=== PATIENT | female | born 1940 | race Caucasian/White ===

== ENCOUNTER 2016-03-08 15:39 | Inpatient (IN) | payer OTHER, MEDICARE ==
[~2016-03-08] VITALS: Ht 167.6 cm; Wt 81.6 kg
[~2016-03-08 15:39] MED LIST: ASPIRIN EC325 M2 PO
--- NOTE | 2016-03-08 15:46 | NUR ---
PT HAD A COLD FOR THE PAST 4 DAYS AND SON STATES SHE HAS BEEN ACTING VERY STRANGE AND NOT MAKING AND SENCE.
--- NOTE | 2016-03-08 16:05 | ED INFLUENZA/URI COMPLAINT ---
History of Present Illness General Chief Complaint: Upper Respiratory Sx/Fever Stated Complaint: ?URI 4 DAYS NOT FELLING WELL Source: patient, family Exam Limitations: confusion Vital Signs & Intake/Output Vital Signs & Intake/Output Vital Signs Date Time Temp Pulse Resp B/P Pulse O2 O2 Flow FiO2 Ox Delivery Rate 03/12 0901 95 Nasal 2.0L Cannula 03/12 0849 98.5 92 20 130/70 03/12 0848 98.5 92 20 130/70 03/12 0817 98.5 92 20 130/70 94 Nasal 2.0L Cannula 03/12 0800 96 Nasal 2.0L Cannula 03/12 0000 97.4 100 22 132/70 92 Room Air 03/12 0000 92 Room Air 03/11 2146 100 132/70 03/11 2017 97 Nasal 2.0L Cannula 03/11 1600 96 03/11 1600 98.6 84 20 130/76 92 Room Air 03/11 1012 98.4 80 20 138/80 03/11 1011 98.4 80 20 138/80 ED Intake and Output 03/12 0000 03/11 1200 Intake Total 1200 100 Output Total 650 500 Balance 550 -400 Intake, IV 0 Intake, Oral 1200 100 Number 0 Bowel Movements Output, Urine 650 500 Allergies Coded Allergies: No Known Allergies (07/14/15) Reconcile Medications Albuterol Sulfate 2.5 MG/3 ML (0.083 %) VIAL.NEB 3 ML INH BID SHORT OF BREATH Alendronate Sodium 70 MG TABLET 1 TAB PO QW BONE HEALTH (Reported) in the morning, at least 30 minutes before the first food, beverage, or medication of the day Amoxicillin/Clavulanate Potass (Amox-Clav 875-125 MG Tablet) 875 MG-125 MG TABLET 1 TAB PO BID PNEUMONIA Aspirin (Ecotrin*) 325 MG TABLET.DR 1 TAB PO DAILY HEART (Reported) Atorvastatin Calcium 20 MG TABLET 1 TAB PO QHS HEART HEALTH (Reported) Benzonatate 100 MG CAPSULE 1 TAB PO TID PRN COUGH Cinacalcet HCl (Sensipar) 30 MG TABLET 1 TAB PO DAILY CALCIUM REPLACEMENT ( Reported) Clopidogrel Bisulfate (Clopidogrel) 75 MG TABLET 1 TAB PO DAILY HEART HEALTH (Reported) Dapagliflozin Propanediol (Farxiga) 5 MG TABLET 1 TAB PO DAILY DM (Reported) Ergocalciferol (Vitamin D2) (Vitamin D2) 50,000 UNIT CAPSULE 1 CAP PO QW VITAMIN (Reported) Furosemide 20 MG TABLET 1 TAB PO DAILY HEART HEALTH (Reported) Glimepiride 4 MG TABLET 1 TAB PO DAILY DM (Reported) Metoprolol Tartrate 25 MG TABLET 1 TAB PO BID HEART HEALTH (Reported) Paroxetine HCl 40 MG TABLET 1 TAB PO DAILY DEPRESSION (Reported) Potassium Chloride 20 MEQ TAB.ER.PRT 1 TAB PO DAILY HEART HEALTH (Reported) Ramipril 2.5 MG CAPSULE 1 CAP PO DAILY HEART HEALTH (Reported) Sitagliptin Phos/Metformin HCl (Janumet 50-500 MG Tablet) 50 MG-500 MG TABLET 1 TAB PO BID DM (Reported) Triage Note: PT HAD A COLD FOR THE PAST 4 DAYS AND SON STATES SHE HAS BEEN ACTING VERY STRANGE AND NOT MAKING AND SENCE. Triage Nurses Notes Reviewed? yes Onset: Gradual Duration: day(s): (3) Timing: recent history Severity: severe No Modifying Factors: none Associated Symptoms: cough, AMS, LETHARGY, FLUCTUATING BLOOD SUGARS HPI: This is a 76-year-old female with history of coronary disease, and diabetes presents to the ER with family from home for chief complaint of not acting herself today. According to the son and [id number] she has been having a cold with cough for the past 2-3 days. Some weakness and malaise. They state that she has had some episodes of altered mental status. No sick contacts. She has not been out since Lisa. Patient lives alone but they live 2 blocks away and they see her multiple times a day. He states that he checked her blood sugar at home and it was fluctuating between 103 100 home. No vomiting that was known. Patient arrives with some altered mental status, mild to moderate distress, hypoxic on the monitor at 89% on room air. She is a nonsmoker, nondrinker. Past History Travel History Traveled to [place] past 21 day No Medical History Any Pertinent Medical History? see below for history Neurological: NONE EENT: NONE Cardiovascular: CAD, hypertension Respiratory: NONE Gastrointestinal: NONE Hepatic: NONE Renal: NONE Musculoskeletal: osteoporosis Psychiatric: NONE Endocrine: diabetes Blood Disorders: NONE Cancer(s): NONE Surgical History Surgical History: stents Psychosocial History What is your primary language [place] Tobacco Use: Never used ETOH Use: denies use Illicit Drug Use: denies illicit drug use Family History Hx Contributory? No Review of Systems Review of Systems Constitutional: Reports: chills, fever, malaise, weakness. EENTM: Reports: no symptoms. Respiratory: Reports: cough, short of breath. Cardiovascular: Reports: chest pain. GI: Reports: no symptoms. Genitourinary: Reports: no symptoms. Musculoskeletal: Reports: no symptoms. Skin: Reports: no symptoms. Neurological/Psychological: Reports: confusion. Hematologic/Endocrine: Denies: bruising, bleeding. Immunologic/Allergic: Reports: no symptoms. All Other Systems: Reviewed and Negative Physical Exam Physical Exam General Appearance: well developed/nourished, alert, awake, moderate distress, CONFUSED Head: atraumatic, normal appearance Eyes: Bilateral: normal appearance, PERRL, EOMI. Ears, Nose, Throat: normal ENT inspection, moist mucous membrane, hearing grossly normal Neck: normal inspection, supple, full range of motion Respiratory: decreased breath sounds, rhonchi Cardiovascular: regular rate/rhythm Peripheral Pulses: 2+ radial (R), 2+ radial (L) Gastrointestinal: normal bowel sounds, soft, non-tender Rectal: BROWN STOOL, GUIAC POSITIVE Extremities: normal inspection, normal capillary refill, normal range of motion, no edema Neurologic/Psych: no motor/sensory deficits, awake, alert, oriented x 3 Skin: intact, normal color, warm/dry Core Measures Severe Sepsis Present: Yes Septic Shock Present: No ED Sepsis Exam Date of Focused Sepsis Exam: 03/08/16 Time of Focused Sepsis Exam: 1711 Sepsis Cardiac Exam: Regular Rate/Rhythm Sepsis Resp Exam: Ronchi Sepsis Cap Refill Exam: <2 Sec Sepsis Peripheral Pulse Exam: Normal Sepsis Peripheral Pulse Location: Radial Sepsis Skin Color Exam: Normal for Ethnicity Skin Temp/Moisture Exam: Warm/Dry Progress Differential Diagnosis: pneumonia, INFLUENZA, BACTEREMIA Plan of Care: Orders Procedure Date/time Status CBC WITHOUT DIFFERENTIAL 03/12 06 Complete Therapeutic Exercise 03/11 UNK Complete Gait Training 03/11 UNK Complete Laboratory Tests 03/12/16 0635: CBC w Diff NO MAN DIFF REQ, RBC 4.51, MCV 83.6, MCH 27.5, RDW 13.3, MPV 9.0, Gran % 66.2, Lymphocytes % 21.1, Monocytes % 10.3 H, Eosinophils % 1.9, Basophils % 0.5, Absolute Granulocytes 6.9 H, Absolute Lymphocytes 2.2, Absolute Monocytes 1.1 H, Absolute Eosinophils 0.2, Absolute Basophils 0.1, PUBS MCHC 32.9 L Diagnostic Imaging: Viewed by Me: Radiology Read, CT Scan. Discussed w/RAD: Radiology Read, CT Scan. Radiology Impression: PATIENT: CHRISTOPHER GONZALEZ PRESENT AGE: 76 PATIENT ACCOUNT NO: [id number] : 38 LOCATION: [facility] ORDERING PHYSICIAN: FRED ROMERO MD SERVICE DATE: 03/08/16 EXAM TYPE: CAT - CT HEAD WO IV CONTRAST EXAMINATION: CT HEAD WITHOUT CONTRAST CLINICAL INFORMATION: 76-year-old female with acute mental status change. Patient requires anticoagulation. Currently has right upper lobe pneumonia. COMPARISON: None. TECHNIQUE: Contiguous axial imaging was performed from the skull base to vertex without intravenous administration of contrast. Motion degrades some of the exam. DLP: 744 mGy-cm. FINDINGS: There is no evidence of acute intracranial hemorrhage or territorial infarction. No abnormal mass effect or midline shift is seen. Patel to white matter differentiation is well preserved. No extra-axial fluid collections are identified. The ventricles are normal in size reflecting mild atrophy of aging. 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 The osseous structures and soft tissues are normal. Mastoid air cells are symmetrically aerated. There is fluid contained within the sphenoid sinus air cells. IMPRESSION: No acute intracranial pathology. No intracranial hemorrhage. Sphenoid sinusitis. DICTATED BY: SELENA MABRY MD DATE/TIME DICTATED:03/08/161840 TESTER/LIFT TRUCKER:KRISTOPHER DATE /TIME TRANSCRIBED:03/08/161840 CONFIDENTIAL, DO NOT COPY WITHOUT APPROPRIATE AUTHORIZATION. <Electronically signed in Other Vendor System> SIGNED BY: SELENA MABRY MD 03/08/16 185 CXR Impression: PATIENT: CHRISTOPHER GONZALEZ PRESENT AGE : 76 PATIENT ACCOUNT NO: [id number] : 38 LOCATION: ER ORDERING PHYSICIAN: FRED ROMERO MD SERVICE DATE: 03/08/161613 EXAM TYPE: RAD - XRY -CHEST XRAY, PA AND LATERAL EXAMINATION: XR CHEST CLINICAL INFORMATION: Cough, fever and altered mental status. COMPARISON: 07/14/2015 TECHNIQUE: PA and lateral views of the chest were obtained. FINDINGS: Patient has a large body habitus. There is a new finding of consolidation within the right upper lung. No pleural effusion. Cardiac silhouette is borderline enlarged. There is atherosclerotic calcification of the aortic arch. Bones are diffusely osteoporotic. 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 The acromiohumeral distance narrowing at the left shoulder suggests presence of chronic rotator cuff tear. IMPRESSION: There is likely bacterial pneumonia of the right upper lobe without pleural effusion. Recommend chest radiographic follow-up in 4-6 weeks after medical therapy to ensure improvement/resolution of the disease. DICTATED BY: BITA PARKER MD DATE/TIME DICTATED:03/08/161636 TESTER/LIFT TRUCKER:KRISTOPHER DATE/TIME TRANSCRIBED:03/08/161636 CONFIDENTIAL, DO NOT COPY WITHOUT APPROPRIATE AUTHORIZATION. <Electronically signed in Other Vendor System> SIGNED BY: BITA PARKER MD 03/08/16 1644 Initial ED EKG: LBBB Departure Departure Time of Disposition: 1911 Disposition: STILL A PATIENT Condition: Stable Clinical Impression Primary Impression: Pneumonia Secondary Impressions: Altered mental status, Hypoxia, LBBB (left bundle branch block) Referrals: GINGER WOO MD (PCP/Family) Departure Forms: Customer Survey General Discharge Information Prescriptions: Current Visit Scripts Albuterol Sulfate 3 ML INH BID #1 Benzonatate 1 TAB PO TID PRN COUGH #30 Amoxicillin/Clavulanate Potass (Amox-Clav 875-125 MG Tablet) 1 TAB PO BID #4 TAB Admission Note Spoke With: MILLER AVILES MD Documentation of Exam: Documentation of any treatments & extenuating circumstances including Concerns Regarding Discharge (functional status, medication knowledge or non-compliance, living conditions, etc.) that warrant an admission rather than observation: [IV ABX, ANTIPYRETICS, NASAL OXYGEN, F/U BLOOD AND SPUTUM CULTURES,, TELE MONITOR, IV HEPARIN, SERIAL EKG/TROPONIN, ECHOCARDIOGRAM, CARDIOLOGY CONSULTATION ] Critical Care Note Critical Care Note Critical Care Time: 30-74 min
--- NOTE | 2016-03-08 16:15 | NUR ---
PT TO ROOM 5 NOTED FAMILY ATTEMPTING TO TRANSFER PT AND ASSISTED PT TO SHASHA ROMERO AT BEDSIDE TO EVAL PT
--- NOTE | 2016-03-08 16:27 | NUR ---
PT LEFT FOR RADIOLOGY
--- NOTE | 2016-03-08 16:44 | RADIOLOGY REPORT ---
EXAMINATION: XR CHEST CLINICAL INFORMATION: Cough, fever and altered mental status. COMPARISON: 07/14/2015 TECHNIQUE: PA and lateral views of the chest were obtained. FINDINGS: Patient has a large body habitus. There is a new finding of consolidation within the right upper lung. No pleural effusion. Cardiac silhouette is borderline enlarged. There is atherosclerotic calcification of the aortic arch. Bones are diffusely osteoporotic. 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 The acromiohumeral distance narrowing at the left shoulder suggests presence of chronic rotator cuff tear. IMPRESSION: There is likely bacterial pneumonia of the right upper lobe without pleural effusion. Recommend chest radiographic follow-up in 4-6 weeks after medical therapy to ensure improvement/resolution of the disease.
[2016-03-08 16:59] LABS: ABSOLUTE BASOPHIL COUNT 0 /CUMM (0.0-0.2); ABSOLUTE EOSINOPHIL COUNT 0 /CUMM (0.0-0.7); ABSOLUTE GRANULOCYTE CT 13.8 /CUMM (1.4-6.5); ABSOLUTE LYMPH COUNT 1.5 /CUMM (1.2-3.4); BASOPHIL % 0.2 % (0.0-2.0); EOSINOPHIL % 0 % (0-5); GRANULOCYTE % 84.4 % (42.2-75.2); HEMATOCRIT 45.7 % (37-47); MEAN CORPUSCULAR HGB 27.2 PG (27.0-31.0); MEAN CORPUSCULAR HGB CONC 32.4 G/DL (33.0-37.0); MEAN CORPUSCULAR VOLUME 84.1 FL (81.0-99.0); MEAN PLATELET VOLUME 8.8 FL (7.4-10.4); PLATELET COUNT 276 /CUMM (130-400); RBC DISTRIBUTION WIDTH 13.3 % (11.5-14.5); RED BLOOD CELL CT 5.43 /CUMM (4.20-5.40); WHITE BLOOD CELL COUNT 16.3 /CUMM (4.8-10.8)
--- NOTE | 2016-03-08 17:02 | NUR ---
LABS AND OTHER TEST SENT PT ATTEMPTED TO VOID WITH NO SUCCESS
--- NOTE | 2016-03-08 17:44 | NUR ---
ATTEMPTED THREE TIMES TO OBTAINE A S/C URINE AND NOT ABLE TO. PT ALSO NOW DIAPHORETIC FROM TYLENOL AND DECREASE IN FEVER. MD TO BE NOTIFIED OF FINDING
--- NOTE | 2016-03-08 17:45 | NUR ---
CRITICAL TEST RESULTS [id number] CHRISTOPHER GONZALEZ 76 F TESTS AND RESULTS: TROP .11 Results received and read back by: BERTO SOLIS Results received date and time: 03/08/16 1827 The following provider was notified of the results, and read the results back: Deanna ROMERO MD Notified date and time: 03/08/16 at 174
--- NOTE | 2016-03-08 17:53 | NUR ---
PT COMPLETED IV ROCEPHINE
--- NOTE | 2016-03-08 18:24 | NUR ---
PT LEFT FOR CAT SCAN AND MEDICATED ORDRED AND HAS IV ZITHRO INFUSING
--- NOTE | 2016-03-08 18:53 | CT SCAN REPORT ---
EXAMINATION: CT HEAD WITHOUT CONTRAST CLINICAL INFORMATION: 76-year-old female with acute mental status change. Patient requires anticoagulation. Currently has right upper lobe pneumonia. COMPARISON: None. TECHNIQUE: Contiguous axial imaging was performed from the skull base to vertex without intravenous administration of contrast. Motion degrades some of the exam. DLP: 744 mGy-cm. FINDINGS: There is no evidence of acute intracranial hemorrhage or territorial infarction. No abnormal mass effect or midline shift is seen. Patel to white matter differentiation is well preserved. No extra-axial fluid collections are identified. The ventricles are normal in size reflecting mild atrophy of aging. 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 The osseous structures and soft tissues are normal. Mastoid air cells are symmetrically aerated. There is fluid contained within the sphenoid sinus air cells. IMPRESSION: No acute intracranial pathology. No intracranial hemorrhage. Sphenoid sinusitis.
--- NOTE | 2016-03-08 19:00 | NUR ---
HOUSE STAFF AT BEDSIDE TO EVAL PT PT WAS GUAIC POSTIVE WITH BROWN STOOL AND NO MASSIMO BLD PER MD ROMERO
--- NOTE | 2016-03-08 19:23 | History & Physical ---
LILY NGO 03/08/161921: General Information and HPI MD Statement: I have seen and personally examined CHRISTOPHER GONZALEZ and documented this H&P. The patient is a 76 year old F who presented with a patient stated chief complaint of [productive cough, change in mentation]. Source of Information: patient, family Exam Limitations: no limitations History of Present Illness: Mrs Gonzalez is a 76 y/o [place] lady with a PMH of CAD is a slight recent placement and (), DM, HTN, lower extremity edema who presents with complaints of three-day duration productive cough and new onset change in mentation. Information obtained from patient's son: Symptoms started on Sunday with a productive cough (yellow sputum) since, which stayed relatively stable over the next 2 days. This morning the patient was noted to have generalized body shakes accompanied with a change in her mentation most noticeably being disoriented and unable to perform simple tasks. No reports of recent travel, sick contacts. ROS: She denies any headache, slurred speech, sneezing, runny nose, sore throat, nausea, chest pain, palpitations, shortness of breath, new rashes, burning with urination lower extremity swelling. Patient's PCP is Dr. Woo (primary care of [place]). Patient's tie in machine operator is Dr. Alaniz in [place]. Allergies/Medications Allergies: Coded Allergies: No Known Allergies (07/14/15) Past History Travel History Traveled to [place] past 21 day No Medical History Neurological: NONE EENT: NONE Cardiovascular: CAD, hypertension Respiratory: NONE Gastrointestinal: NONE Hepatic: NONE Renal: NONE Musculoskeletal: osteoporosis Psychiatric: NONE Endocrine: diabetes Blood Disorders: NONE Cancer(s): NONE Surgical History Surgical History: stents Past Family/Social History Psychosocial History ETOH Use: denies use Illicit Drug Use: denies illicit drug use Review of Systems Review of Systems Constitutional: Reports: see HPI. EENTM: Reports: no symptoms. Cardiovascular: Reports: see HPI. Respiratory: Reports: see HPI. GI: Reports: no symptoms. Genitourinary: Reports: no symptoms. Musculoskeletal: Reports: no symptoms. Skin: Reports: no symptoms. Exam & Diagnostic Data Last 24 Hrs of Vital Signs/I&O Vital Signs Date Time Temp Pulse Resp B/P Pulse O2 O2 Flow FiO2 Ox Delivery Rate 03/08 2105 98.3 74 74 108/59 95 Nasal 2.0L Cannula 03/08 1846 97.8 86 18 122/61 95 03/08 1759 99.5 96 20 135/70 94 Nasal 2.0L Cannula 03/08 1547 99.7 98 16 139/77 90 Nasal Cannula Intake & Output 03/08 1600 03/08 0800 03/08 0000 Intake Total Output Total Balance Patient 180 lb Weight Physical Exam General Appearance Alert, Cooperative, No Acute Distress Skin No Rashes, No Breakdown HEENT PERRLA, EOMI, Mucous Membr. moist/pink Neck Supple Cardiovascular Regular Rate, Normal S1, Normal S2 Lungs Normal Air Movement, Inspiratory crackles in the basilar regions BL. Rhonchi present in the R lung shah Abdomen Normal Bowel Sounds, Soft, No Tenderness Neurological Normal Speech Extremities No Cyanosis, No Edema Vascular Pulses Symmetrical Last 24 Hrs of Labs/Pablito: Laboratory Tests 03/08/16 1808: Urine Color YEL, Urine Clarity CLEAR, Urine pH 6.0, Ur Specific [place] 1.015, Urine Protein 30 H, Urine Ketones NEG, Urine Nitrite NEG, Urine Bilirubin NEG, Urine Urobilinogen 0.2, Ur Leukocyte Esterase NEG, Ur Microscopic SEDIMENT EXAMINED, Urine RBC RARE, Urine Hemoglobin TRACE-INTACT, Urine Glucose >=1000 H 03/08/16 1640: Anion Gap 13, Estimated GFR > 60, BUN/Creatinine Ratio 28.0 H, Glucose 141 H, Lactic Acid 1.6, Calcium 9.2, Total Bilirubin 1.5 H, AST 35, ALT 43, Alkaline Phosphatase 122, Troponin I 0.11 *H, Total Protein 7.1, Albumin 3.8, Globulin 3.3, Albumin/Globulin Ratio 1.2, CBC w Diff MAN DIFF ORDERED, RBC 5.43 H, MCV 84.1, MCH 27.2, RDW 13.3, MPV 8.8, Gran % 84.4 H, Lymphocytes % 9.2 L, Monocytes % 6.2, Eosinophils % 0, Basophils % 0.2, Absolute Granulocytes 13.8 H , Segmented Neutrophils 70, Band Neutrophils 6 H, Absolute Lymphocytes 1.5, Lymphocytes 8 L, Monocytes 16 H, Absolute Monocytes 1.0 H, Absolute Eosinophils 0, Absolute Basophils 0, Platelet Estimate ADEQUATE, Normocytic RBCs VERIFIED, Normochromic RBCs VERIFIED, PUBS MCHC 32.4 L, Acetone Level NEGATIVE Microbiology 03/08 2103 URINE ROUT: Legionella Antigen - ORD 03/08 2103 URINE ROUT: Streptococcus pneumoniae Antigen (M - ORD 03/08 1808 URINE ROUT: Urine Culture - RECD 03/08 1710 LOWER RESP: Respiratory Culture - ORD 03/08 1710 LOWER RESP: Gram Stain - ORD 03/08 1655 BLOOD: Blood Culture - RECD 03/08 1640 BLOOD: Blood Culture - RECD Diagnostic Data EKG Results Sinus rhythm, left bundle branch block. HR 96. QTC 470 CXR Results There is likely bacterial pneumonia of the right upper lobe without pleural effusion. Recommend chest radiographic follow-up in 4-6 weeks after medical therapy to ensure improvement/resolution of the disease. Other Results Head CT: No acute intracranial pathology. No intracranial hemorrhage. Sphenoid sinusitis. Assessment/Plan Assessment: 76 y/o [place] lady with a PMH of CAD is a slight recent placement and (2010), DM, HTN, lower extremity edema who presents with complaints of three-day duration productive cough and new onset change in mentation. Information obtained from patient's son: Symptoms started on Sunday with a productive cough (yellow sputum) since, which stayed relatively stable over the next 2 days. This morning the patient was noted to have generalized body shakes accompanied with a change in her mentation most noticeably being disoriented and unable to perform simple tasks. No reports of recent travel, sick contacts. VS on admission: BP 139/77, HR 98, RR 16, SPO2 90% on RA corrected to 94% on 2 LNC, T 99.7 Pertinent labs: WBC 16.3, 6% bandemia, sodium 135, T bili 1.5 Lactic acid: 0.11 Lactic acid: 1.6 UA: Glucose >1000 Problem list: 1. Community-acquired pneumonia 2. Leukocytosis with bandemia 3. Elevated troponins: NSTEMI vs demand ischemia of infection 4. LBBB on EKG 5. History of CAD 6. Diabetes Plan: * Admit to telemetry for continuous cardiac monitoring * Serial EKG/troponin 0100 hours, 0600 hrs. Echocardiogram in the a.m. * Cardiology follow-up in the a.m. (Dr. Freedman) * Lipid panel in the a.m. and discuss with cardiology for starting atorvastatin the a.m. * Heparin drip was started in the ED without PTT. Stat PTT ordered, nursing staff made aware to follow-up with dosage accordingly * Follow-up magnesium and phosphorus level * Follow-up cultures: Blood, urine, Legionella, strep antigen. Ceftriaxone and azithromycin started for CAP * Rapid influenza negative * Diabetic diet. Accu-Cheks, low-dose sliding scale * Pt NPO at this time in the setting of elevated troponins, EKG changes while on heparin for potential cardiac intervention * AM TEAM: * Patient is currently on a heparin drip. Confirm with cardiology for the need to continue aspirin and Plavix at this time As Ranked By This Provider Problem List: 1. Pneumonia 2. LBBB (left bundle branch block) 3. NSTEMI (non-ST elevated myocardial infarction) Core Measures/Miscellaneous Acute Coronary Syndrome ACS Diagnosis: Yes ASA W/I 24hr of admit Yes Beta-Kanika W/I 24hrs Yes LDL assessed W/I 24 hrs Yes Currently on Statin Yes Cerebrovascular Accident CVA/TIA Diagnosis: No Congestive Heart Failure CHF Diagnosis: No Venous Thromboembolism VTE Risk Factors: Age > 40 VTE Prophylaxis Ordered Inpt: [facility] prophylaxis d/t: No contraindications No VTE Pharm Prophylaxis d/t: No contraindications VTE Diagnosis: No VTE Type: NONE VTE Confirmed by (Test): NONE Severe Sepsis Severe Sepsis Present: Yes Septic Shock Septic Shock Present: No Miscellaneous Documentation Attending Case Discussed With: MILLER AVILES MD Primary Care Physician: GINGER WOO MD Patient sees these Specialists Dr. Alaniz (antenna rigger in [place]) Level of Patient Care: Telemetry MILLER AVILES 03/09/16 0114: General Information and HPI Allergies/Medications Home Med list Alendronate Sodium 70 MG TABLET 1 TAB PO QW BONE HEALTH (Reported) in the morning, at least 30 minutes before the first food, beverage, or medication of the day Aspirin (Ecotrin*) 325 MG TABLET.DR 1 TAB PO DAILY HEART (Reported) Atorvastatin Calcium 20 MG TABLET 1 TAB PO QHS HEART HEALTH (Reported) Cinacalcet HCl (Sensipar) 30 MG TABLET 1 TAB PO DAILY CALCIUM REPLACEMENT ( Reported) Clopidogrel Bisulfate (Clopidogrel) 75 MG TABLET 1 TAB PO DAILY HEART HEALTH (Reported) Dapagliflozin Propanediol (Farxiga) 5 MG TABLET 1 TAB PO DAILY DM (Reported) Ergocalciferol (Vitamin D2) (Vitamin D2) 50,000 UNIT CAPSULE 1 CAP PO QW VITAMIN (Reported) Furosemide 20 MG TABLET 1 TAB PO DAILY HEART HEALTH (Reported) Glimepiride 4 MG TABLET 1 TAB PO DAILY DM (Reported) Metoprolol Tartrate 25 MG TABLET 1 TAB PO BID HEART HEALTH (Reported) Paroxetine HCl 40 MG TABLET 1 TAB PO DAILY DEPRESSION (Reported) Potassium Chloride 20 MEQ TAB.ER.PRT 1 TAB PO DAILY HEART HEALTH (Reported) Ramipril 2.5 MG CAPSULE 1 CAP PO DAILY HEART HEALTH (Reported) Sitagliptin Phos/Metformin HCl (Janumet 50-500 MG Tablet) 50 MG-500 MG TABLET 1 TAB PO BID DM (Reported) Attending MD Review Statement Attending Statement Attending MD Statement: examined this patient, discuss w/resident/PA/AIR VALUE TESTER, agreed w/resident/PA/AIR VALUE TESTER, discussed with family, reviewed EMR data (avail), reviewed images, amended to note Attending Assessment/Plan: CC: Cough, SOB, confusion PMH: DM (on insulin), CAD S/P stent 5 years back, HTN Patient's primary language is [place], she speaks and understands Panamanian. History is mainly obtained from son and [id number]. According to them patient had been having cough upper respiratory symptoms along with some shortness of breath since last 4 days. Son observed some chills but patient denied any chills and fever. Patient was more lethargic and last 4 days and very much confused today so she was brought to ER. Patient had some chest pain after the cough started, center of the chest, nonradiating, currently resolved. Patient feels much better. Vitals: T max is 99.7, HR, RR, BP in acceptable range. Patient was 89% on room air at presentation, saturating 96% on 2 L currently. On exam: A O 3, mucosa extremely dry, neck supple, no JVD, no lymphadenopathy. CVS: S1-S2, RRR. RS: Clear to auscultate bilaterally. Abdomen: Soft, NT, ND, BS present. No focal neurological deficit. No obvious dependent edema. No skin rashes or inflammation. Labs: Remarkable for WBC 16.3, bicarbonate 30, bilirubin 1.5, lactate 1.5. Troponin 0.11 CXR:There is likely bacterial pneumonia of the right upper lobe without pleural effusion. CT head: No acute intracranial pathology, splenoid sinusitis present EKG: LBBB (new compared to previous EKG in June 2015) A and P #1 community-acquired pneumonia: Patient presented with cough and hypoxia, significant leukocytosis, chest x-ray shows right-sided infiltrate, patient currently is afebrile, lactate 1.6. Patient received azithromycin and ceftriaxone in ER along with 500 mL normal saline. - blood culture, sputum culture, UA -Continue azithromycin and ceftriaxone, continue O2 by nasal cannula, continue Mucinex, incentive spirometry #2 ?NSTEMI: elevated troponin, with new LBBB as compared to EKG in June 2015. Patient had history of CAD, S/P stent done 5 years back. Patient has tie in machine operator in [place], follows with her every 6 months. Cardiology was consulted in ER who suggested heparin drip.Patient has positive guaiac, but no martha blood. Onset of LBBB is unclear. Given her hypoxia, sepsis demand ischemia cannot be denied. -Serial EKG, trend troponin, patient received aspirin in ER, continue atorvastatin continue aspirin in a.m., continue Plavix in a.m., give evening dose of metoprolol, continue heparin. Watch for any acute bleeding, check CBC in a.m. #3 DM: Hold Janumet, continue basal and sliding scale insulin. #4 metabolic encephalopathy: Patient is much alert after hydration, CT head negative. Probably secondary to infection and volume contraction. Continue gentle hydration. #5 HTN: Continue ACEI for a.m., hold Lasix #6 patient was found to have solid heterogeneous mass probably arising from thyroid, ultrasound obtain thereafter showed : dominant left lower pole nodule with suspicious features. Percutaneous needle biopsy was suggested at that time, patient's son says that they followed up with outpatient. I could not find any pathology for that result in the previous records. This is to be followed up outpatient. #7 OT PT evaluation, adequate pain control
--- NOTE | 2016-03-08 19:30 | NUR ---
PT HAS BED ASSIGNMENT 176-1. ROOM NOT CLEAN. RN NOTIFIED.
--- NOTE | 2016-03-08 21:48 | NUR ---
NURSE IS IN ISOLATION ROOM SO SHE WILL CALL ME BACK
[2016-03-08] MEDS ORDERED: JANUMET 50-5001 EACH PO (22:19)
[2016-03-08] MEDS ORDERED: FARXIGA5 M1 PO (22:19)
[2016-03-08] MEDS ORDERED: ATORVASTATIN CA20 M1 PO (22:20)
[2016-03-08] MEDS ORDERED: METOPROLOL TART25 M1 PO (22:20)
[2016-03-08] MEDS ORDERED: RAMIPRIL2.5 M1 PO (22:21)
[2016-03-08] MEDS ORDERED: SENSIPAR30 M1 PO (22:23)
[2016-03-08] MEDS ORDERED: PAROXETINE HCL40 M1 PO (22:24)
[2016-03-08] MEDS ORDERED: CLOPIDOGREL75 M1 PO (22:24)
[2016-03-08] MEDS ORDERED: ALENDRONATE SOD70 M2 PO (22:25)
[2016-03-08] MEDS ORDERED: FUROSEMIDE20 M1 PO (22:26)
[2016-03-08] MEDS ORDERED: VITAMIN D250000 UNIT PO (22:27)
[2016-03-08] MEDS ORDERED: GLIMEPIRIDE4 M1 PO (22:27)
[2016-03-08] MEDS ORDERED: POTASSIUM CHLO20 ME2 PO (22:27)
[2016-03-08 23:14] VITALS: BP 126/72
--- NOTE | 2016-03-08 23:29 | NUR ---
CHRISTOPHER GONZALEZ Nurse Note by: BERTO SOLIS I agree with the POWDERED SUGAR PULVERIZER OPERATOR findings/evaluation of this patient's condition. Entered by: BERTO SOLIS Date: 03/08/16 Time: 1560
--- NOTE | 2016-03-09 01:16 | Admission Certification ---
Admission Certification Certification Statement - As attending physician, I certify that at the time of - admission, based on clinical presentation, severity of - symptoms, need for further diagnostic testing and - therapeutic interventions, and risk of adverse outcomes - without in-hospital treatment, in my clinical assessment, - this patient requires an acute hospital stay for a minimum - of two nights or longer. I have also considered psychsocial - factors such as support system, advanced age, financial - issues, cognitive issues, and failed out-patient treatments, - past re-admission history, safety of patient, and lack of - compliance as applicable. Specific rationale supporting this admission is: Pneumonia, NSTEMI
[2016-03-09 03:09] LABS: PT 16.5 SEC (9.4-12.5); PTT 40 SEC (25-37)
--- NOTE | 2016-03-09 06:03 | NUR ---
AROUND 0600 PT HAD 7 BEAT RUN OF VTACH FOLLOWED BY A 3 BEAT RUN. MD IZQUIERDO NOTIFIED. PTS BP AT THIS TIME 130/62, HR 82, O2 92% ON 2L N.C. PT ASYMPTOMATIC NO REPORTS OF CHEST PAIN OR SHORTNESS OF BREATH. WILL CONTINUE TO CLOSELY MONITOR.
--- NOTE | 2016-03-09 07:20 | PN- Housestaff ---
MARLA DORSEY 03/09/16 0720: Subjective Follow-up For: Community acquired pneumonia Elevated troponins-NSTEMI versus demand ischemia NEW Left bundle branch block Complaints: pain scale (0-10) Tele-Events Since Last Visit: Sinus rhythm Rate 72-86 3 beat run V. tach in the morning Subjective: Patient was seen and examined this morning. she is alert, awake and oriented to time place and person. No acute events monitored overnight Patient reports ongoing cough, sputum production-yellow color, shortness of breath, she feels weak and lethargic this morning. However denies any chest pain, racing of heart, headache, dizziness or lightheadedness. Denies any nausea, vomiting, abdominal pain, in bladder or bowel habits, fever or chills. Vitals were normal. Afebrile, heart rate 97, respiratory rate 20, blood pressure 118/64, saturating at 96% on 2 L. Review of Systems Constitutional: Denies: chills. Objective Last 24 Hrs of Vital Signs/I&O Vital Signs Date Time Temp Pulse Resp B/P Pulse O2 O2 Flow FiO2 Ox Delivery Rate 03/09 1628 98.7 97 20 118/64 96 Nasal 2.0L Cannula 03/09 1322 96 Nasal 2.0L Cannula 03/09 1253 Nasal 2.0L Cannula 03/09 1002 84 132/60 03/09 1001 84 132/60 03/09 0834 99.5 84 20 132/60 95 Nasal 2.0L Cannula 03/09 0800 93 Nasal 2.0L Cannula 03/09 0016 85 120/72 03/08 2314 98.1 85 20 126/72 96 Nasal 2.0L Cannula 03/08 2300 95 Nasal 2.0L Cannula 03/08 2106 98.3 74 74 108/59 95 Nasal 2.0L Cannula Intake & Output 03/09 1600 03/09 0800 03/09 0000 Intake Total 320 200 Output Total 150 200 Balance 170 0 Intake, Oral 320 200 Output, Urine 150 200 Patient 81.647 kg Weight Physical Exam General Appearance: Alert, Oriented X3, Cooperative, No Acute Distress Skin: No Rashes, No Breakdown HEENT: Atraumatic, Mucous Membr. moist/pink Neck: Supple, No JVD Lymphatic: Cervical nl Cardiovascular: Normal S1, Normal S2 Lungs: Normal Air Movement, b/l wheezes Abdomen: Normal Bowel Sounds, Soft, No Tenderness Extremities: No Clubbing, No Cyanosis, No Edema Vascular: Normal Pulses Current Medications: Current Medications Sig/Dima Start time Last Medication Dose Route Stop Time Status Admin Acetaminophen 650 MG Q6P PRN 03/08 2100 AC PO Albuterol Sulfate 3 ML BID 03/09 1250 AC 03/09 INH 1240 Aspirin Buffered 325 MG DAILY 03/09 1000 AC 03/09 PO 1000 Atorvastatin Calcium 5 MG 1700 03/09 1700 AC 03/09 PO 1802 Atorvastatin Calcium 20 MG AT BEDTIME 03/08 2359 AC 03/09 PO 0016 Azithromycin 500 MG DAILY 03/09 1000 AC 03/09 Dextrose/Water 250 ML IV 1005 Ceftriaxone Sodium 1,000 MG DAILY 03/09 1000 AC 03/09 IV 0918 Cinacalcet 30 MG DAILY 03/09 1000 AC 03/09 PO 1000 Clopidogrel Bisulfate 75 MG DAILY 03/09 1000 AC 03/09 PO 1010 Enoxaparin Sodium 0 .STK-MED ONE 03/08 2201 DC SC Enoxaparin Sodium 40 MG DAILY 03/08 205 DC 03/08 SC 2150 Ergocalciferol 50,000 IU QFRI 03/10 0700 AC PO Guaifenesin 600 MG Q12 03/09 1000 AC 03/09 PO 1001 Heparin Sodium 5,000 UNIT Q8 03/09 1455 AC 03/09 (Porcine) SC 1744 Heparin Sodium 4,860 UNIT ONCE ONE 03/09 0330 DC 03/09 (Porcine) IV 03/09 0331 0733 Heparin Sodium 25,000 UNIT Q24H 03/08 1945 DC 03/08 (Porcine) IV 2000 Sodium Chloride 500 ML Insulin Aspart 0 TIDAC 03/10 0800 AC 03/09 SC 1804 Insulin Aspart 0 TIDAC/HS 03/09 2100 CAN SC Insulin Aspart 0 TIDAC 03/09 0800 CAN SC Insulin Human Regular 0 Q6 03/09 1200 DC SC Lisinopril 2.5 MG DAILY 03/09 1000 AC 03/09 PO 1002 Magnesium Oxide 400 MG ONE ONE 03/09 0930 DC 03/09 PO 03/09 0931 1003 Metoprolol Tartrate 25 MG BID 03/08 2314 AC 03/09 PO 1001 Oxycodone/ 1 TAB Q6P PRN 03/08 2100 DC Acetaminophen PO Oxycodone/ 2 TAB Q6P PRN 03/08 2100 DC Acetaminophen PO Paroxetine HCl 40 MG DAILY 03/09 1000 AC 03/09 PO 1001 Patient Medication 1 ED .STK-MED ONE 03/09 1349 DC Teaching ED 03/09 1350 Potassium Chloride 40 MEQ ONCE ONE 03/09 0930 DC 03/09 PO 03/09 0931 1003 Sodium Chloride 1,000 ML Q13H 03/08 2130 DC 03/08 IV 03/09 1029 2150 Last 24 Hrs of Lab/Pablito Results Last 24 Hrs of Labs/Mics: Laboratory Tests 03/09/16 1155: Troponin I 0.16 *H 03/09/16 0725: APTT 49 H 03/09/16 0640: Anion Gap 10, Estimated GFR > 60, BUN/Creatinine Ratio 31.7 H, Magnesium 1.8, Troponin I 0.23 *H, Triglycerides 107, Cholesterol 101, LDL Cholesterol, Calc 48 L, HDL Cholesterol 32 L, Cholesterol/HDL Ratio 3, CBC w Diff NO MAN DIFF REQ, RBC 4.55, MCV 83.8, MCH 27.4, RDW 13.1, MPV 9.1, Gran % 74.1, Lymphocytes % 16.1 L, Monocytes % 9.2, Eosinophils % 0.2, Basophils % 0.4, Absolute Granulocytes 10.4 H, Absolute Lymphocytes 2.3, Absolute Monocytes 1.3 H, Absolute Eosinophils 0, Absolute Basophils 0.1, PUBS MCHC 32.7 L 03/09/16 0600: APTT Cancelled 03/09/16 0207: PT 16.5 H, INR 1.58 H, APTT 40 H 03/09/16 0137: Troponin I 0.22 *H 03/08/16 1913: Lactic Acid Cancelled Microbiology 03/08 2149 LOWER RESP: Respiratory Culture - RES 03/08 2149 LOWER RESP: Gram Stain - RES Assessment/Plan Assessment: This is a 76-year-old female with past medical history significant for coronary artery disease status post stent placed in 2009 and 2010, diabetes mellitus, hypertension, lower extremity edema, osteoporosis was brought to the emergency department with chief complaint of cough,yellow colour sputum production, chills , short of breath for 3 days. Also noted changes in mentation. VS on admission: BP 139/77, HR 98, RR 16, SPO2 90% on RA corrected to 94% on 2 LNC, T 99.7 Pertinent labs: WBC 16.3, 6% bandemia, bep- normal. troponins: 0.11 Lactic acid: 1.6 ekg on admisssion- sinus rhythm at 96 bpm, and LBBB. New LBBB when compared to previous tracing sinus rhythm at 83 bpm and within normal limits- 03/09/16. CXR Results (03/08/2016) There is likely bacterial pneumonia of the right upper lobe without pleural effusion. Recommend chest radiographic follow-up in 4-6 weeks after medical therapy to ensure improvement/resolution of the disease. Other Results Head CT (03/08/2016) no acute intracranial process. Problem list: 1. Community-acquired pneumonia 2. Leukocytosis with bandemia 3. Elevated troponins: NSTEMI vs demand ischemia of infection 4. new LBBB on EKG 5. History of CAD 6. Diabetes 7. Hypertension 8. Osteoporosis 9. Lower extremity edema Community-acquired pneumonia Patient presented with shaking chills, shortness of breath, cough associated with sputum production. However she is afebrile. Leukocyte count 16.3 with bandemia on admission. She is hypoxic requiring 2 L oxygen. Chest x-ray suggestive of bacterial pneumonia of right upper lobe. * Admitted to telemetry floor for further management. * Continuous telemetry monitoring * Monitor vitals every shift * Maintain oxygen saturation Above 90% * Provide supplemental oxygen if necessary * Monitor closely for fever, leukocyte common, worsening shortness of breath, cough, sputum production, hemoptysis * Continue IV antibiotics ceftriaxone and azithromycin day2. * Incentive spirometry * Total respiratory care * Follow blood culture and sputum cultures * Mucinex for cough * Check CBC in the morning Elevated troponins Patient was admitted for community-acquired pneumonia. Elevated troponins on admission. EKG showed sinus rhythm with a new left bundle branch block. ofNote patient has history of coronary artery disease with stents placement * Possibly from demand ischemia versus and nstemi. * Serial troponins 0.11, 0.22, 0.23, 0.16 * Serial EKGs-sinus rhythm at 83 bpm and within normal limits * Patient was initially started on IV heparin drip for possible nstemi * Will obtain an echo * IV heparin was stopped later * Continue aspirin 325 mg a day * Continue Plavix * Continue statins * Structural Technician Dr. Jasmina davin on board Diabetes mellitus Accu-Cheks before each meal NovoLog sliding scale Hypertension Continue home dose of metoprolol and lisinopril Coronary artery disease Status post stent placement Continue aspirin Continue Plavix Continue statins Lower extremity edema Denies any edema Hold Lasix for now Osteoporosis Continue cincalnet Continued ergocalciferol Depression Continue paroxetine DVT prophylaxis subcutaneous heparin Heart healthy diet Passed swallow evaluation Full code Mild to moderate pain pathway Tylenol Problem List: 1. LBBB (left bundle branch block) 2. Altered mental status 3. Hypoxia 4. Pneumonia Pain Ratin Pain Location: none Pain Goal: Remain pain free Pain Plan: tylinol Tomorrow's Labs & Rationales: CBC in the setting of leukocytosis MARIANNA HUYNH MD 03/09/16 1506: Attending MD Review Statement Attending Statement Attending MD Statement: examined this patient, discuss w/resident/PA/WELT SLASHER, agreed w/resident/PA/WELT SLASHER, reviewed EMR data (avail), discussed with nursing, discussed with case mgmt Attending Assessment/Plan: 76-year-old female past medical history of diabetes, hypertension, coronary artery disease with a stent more than 5 years ago who came in with a cough, sputum and low-grade fevers at home. She is being treated with IV ceftriaxone and azithromycin for community-acquired pneumonia. Of note she had positive troponins overnight and a left bundle that appears to have been resolved. She was started on IV heparin for possible non-ST elevation HI but today she states it feeling much better, and the thought is this is demand ischemia in the setting of community-acquired pneumonia. Will trend her white count closely. It's already gone down from 16-14, she passed a swallow eval as I was worried about aspiration given the gram stain of the sputum showing multiple organisms and negative culture. Will continue aspirin and Plavix statin and follow closely.
[2016-03-09 08:06] LABS: ABSOLUTE BASOPHIL COUNT 0.1 /CUMM (0.0-0.2); ABSOLUTE EOSINOPHIL COUNT 0 /CUMM (0.0-0.7); ABSOLUTE GRANULOCYTE CT 10.4 /CUMM (1.4-6.5); ABSOLUTE LYMPH COUNT 2.3 /CUMM (1.2-3.4); ABSOLUTE MONOCYTE COUNT 1.3 /CUMM (0.10-0.60); BASOPHIL % 0.4 % (0.0-2.0); EOSINOPHIL % 0.2 % (0-5); GRANULOCYTE % 74.1 % (42.2-75.2); MEAN CORPUSCULAR HGB 27.4 PG (27.0-31.0); MEAN CORPUSCULAR HGB CONC 32.7 G/DL (33.0-37.0); MEAN CORPUSCULAR VOLUME 83.8 FL (81.0-99.0); MEAN PLATELET VOLUME 9.1 FL (7.4-10.4); PLATELET COUNT 247 /CUMM (130-400); RBC DISTRIBUTION WIDTH 13.1 % (11.5-14.5); RED BLOOD CELL CT 4.55 /CUMM (4.20-5.40); WHITE BLOOD CELL COUNT 14.1 /CUMM (4.8-10.8)
[2016-03-09 08:33] LABS: HEMATOCRIT 38.1 % (37-47)
[2016-03-09 08:34] VITALS: BP 132/60
[2016-03-09 08:42] LABS: PTT 49 SEC (25-37)
--- NOTE | 2016-03-09 12:40 | NUR ---
SPEECH THERAPY: ATTEMPTED TO SEE PT FOR SWALLOW EVALUATION; PT CURRENTLY NPO FOR POTENTIAL CARIDIAC CATH; AWAITING CLEARANCE FROM CARDIOLOGY TO PROCEED WITH SWALLOW EVAL. RN TO [facility] WHEN CLEARANCE IS PROVIDED.
--- NOTE | 2016-03-09 13:07 | NUR ---
Fingerstick at 1128 was 122. Went to administer insulin to patient for sliding scale and patient was diaphoretic. Pt. denied any complaints except "being hot." Fingerstick checked again at 1300 and it was 75. Because patient was diaphoretic, NPO, and had a large drop in blood sugar within a short amount of time, MD Henley notified at 1305. Dr. Henley stated no intervention needed at this time and that she will come to evaluate the patient. Will continue to monitor and follow up.
--- NOTE | 2016-03-09 13:17 | NUR ---
MD stated patient should drink some juice and that she will remove NPO status. Patient provided with sips of water prior to orange juice to evaluate swallowing status. Patient able to swallow without difficulty. Patient then provided with 4oz of orange juice which she tolerated well. Patient remains diaraphoretic and will continue to monitor for diet order and blood sugar as appropriate.
--- NOTE | 2016-03-09 14:11 | Cons- Cardiology ---
General Information and HPI Consulting Request Date of Consult: 03/09/16 Requested By: MILLER AVILES MD Reason for Consult: "New" LBBB and positive troponin I. Source of Information: patient, family, old records Exam Limitations: language barrier History of Present Illness: Mrs Al Brennan is a 76-year-old female of [place] descent with a history of hypertension, dyslipidemia, diabetes mellitus, and coronary artery disease s/p percutaneous coronary intervention(s) around 2009 in [place] who presented to the ED on 03/08/2016 with a history of cough productive of yellowish sputum that began on Sunday (03/05/2016) that was followed by altered mental status and shaking chills on the morning of admission. In the ED she was discovered to have an elevated WBC count with left shift and CXR findings c/w probable right upper lobe pneumonia, as well as, a "new" LBBB on presentation that resolved on subsequent tracings and modestly elevated troponin I and has continued to elevate slightly. Allergies/Medications Allergies: Coded Allergies: No Known Allergies (07/14/15) Home Med List: Alendronate Sodium 70 MG TABLET 1 TAB PO QW BONE HEALTH (Reported) in the morning, at least 30 minutes before the first food, beverage, or medication of the day Aspirin (Ecotrin*) 325 MG TABLET.DR 1 TAB PO DAILY HEART (Reported) Atorvastatin Calcium 20 MG TABLET 1 TAB PO QHS HEART HEALTH (Reported) Cinacalcet HCl (Sensipar) 30 MG TABLET 1 TAB PO DAILY CALCIUM REPLACEMENT ( Reported) Clopidogrel Bisulfate (Clopidogrel) 75 MG TABLET 1 TAB PO DAILY HEART HEALTH (Reported) Dapagliflozin Propanediol (Farxiga) 5 MG TABLET 1 TAB PO DAILY DM (Reported) Ergocalciferol (Vitamin D2) (Vitamin D2) 50,000 UNIT CAPSULE 1 CAP PO QW VITAMIN (Reported) Furosemide 20 MG TABLET 1 TAB PO DAILY HEART HEALTH (Reported) Glimepiride 4 MG TABLET 1 TAB PO DAILY DM (Reported) Metoprolol Tartrate 25 MG TABLET 1 TAB PO BID HEART HEALTH (Reported) Paroxetine HCl 40 MG TABLET 1 TAB PO DAILY DEPRESSION (Reported) Potassium Chloride 20 MEQ TAB.ER.PRT 1 TAB PO DAILY HEART HEALTH (Reported) Ramipril 2.5 MG CAPSULE 1 CAP PO DAILY HEART HEALTH (Reported) Sitagliptin Phos/Metformin HCl (Janumet 50-500 MG Tablet) 50 MG-500 MG TABLET 1 TAB PO BID DM (Reported) Review of Systems Review of Systems: A 14 point system review was obtained and was noncontributory, other than as above, except for the fact the patient wears glasses. Past History Travel History Traveled to [place] past 21 day No Medical History Blood Transfusion Hx: No Neurological: NONE EENT: NONE Cardiovascular: CAD, hypertension Respiratory: NONE Gastrointestinal: NONE Hepatic: NONE Renal: NONE Musculoskeletal: osteoporosis Psychiatric: NONE Endocrine: diabetes Blood Disorders: NONE Cancer(s): NONE Surgical History Surgical History: stents Psychosocial History Where Do You Live? Home Services at Home: None Smoking Status: Never Smoked ETOH Use: denies use Illicit Drug Use: denies illicit drug use Exam & Diagnostic Data Vital Signs and I&O Vital Signs Date Time Temp Pulse Resp B/P Pulse O2 O2 Flow FiO2 Ox Delivery Rate 03/09 1322 96 Nasal 2.0L Cannula 03/09 1253 Nasal 2.0L Cannula 03/09 1002 84 132/60 03/09 1001 84 132/60 03/09 0834 99.5 84 20 132/60 95 Nasal 2.0L Cannula 03/09 0016 85 120/72 03/08 2314 98.1 85 20 126/72 96 Nasal 2.0L Cannula 03/08 2300 95 Nasal 2.0L Cannula 03/08 2106 98.3 74 74 108/59 95 Nasal 2.0L Cannula 03/08 1846 97.8 86 18 122/61 95 03/08 1759 99.5 96 20 135/70 94 Nasal 2.0L Cannula 03/08 1547 99.7 98 16 139/77 90 Nasal Cannula Intake & Output 03/09 1600 03/09 0800 03/09 0000 03/08 1600 03/08 0800 03/08 0000 Intake Total 200 Output Total 200 Balance 0 Intake, Oral 200 Output, Urine 200 Patient 180 lb 180 lb Weight Physical Exam: Well-developed, overweight elderly female in no acute distress, but with audible wheezing and diaphoresis. Vital signs: See above. HEENT: Normocephalic, atraumatic, EOMI, moist mucous membranes. Neck: No JVD, no bruits. Lungs: Bilateral wheezing. Heart: S1, S2 with a soft (grade 1/6) systolic murmur. No gallop or rub appreciated. PMI not well felt. Abdomen: Soft, nontender, positive bowel sounds. Extremities: No edema. Labs/[place]ablito Results: Laboratory Tests 03/09 03/09 03/09 1155 0725 0640 Chemistry Sodium (137 - 145 mmol/L) 139 Potassium (3.5 - 5.1 mmol/L) 3.9 Chloride (98 - 107 mmol/L) 99 Carbon Dioxide (22 - 30 mmol/L) 30 Anion Gap (5 - 16) 10 BUN (7 - 17 mg/dL) 19 H Creatinine (0.5 - 1.0 mg/dL) 0.6 Estimated GFR (>60 ml/min) > 60 BUN/Creatinine Ratio (7 - 25 %) 31.7 H Magnesium (1.6 - 2.3 mg/dL) 1.8 Troponin I (< 0.11 ng/ml) 0.16 *H 0.23 *H Triglycerides (<150 mg/dL) 107 Cholesterol (<200 MG/DL) 101 LDL Cholesterol, Calc (65 - 129 mg/dL) 48 L HDL Cholesterol (40 - 60 mg/dL) 32 L Cholesterol/HDL Ratio (0.00 - 4.23 %) 3 Coagulation APTT (25 - 37 SEC) 49 H Hematology CBC w Diff NO MAN DIFF REQ WBC (4.8 - 10.8 /CUMM) 14.1 H RBC (4.20 - 5.40 /CUMM) 4.55 Hgb (12.0 - 16.0 G/DL) 12.5 Hct (37 - 47 %) 38.1 MCV (81.0 - 99.0 FL) 83.8 MCH (27.0 - 31.0 PG) 27.4 RDW (11.5 - 14.5 %) 13.1 Plt Count (130 - 400 /CUMM) 247 MPV (7.4 - 10.4 FL) 9.1 Gran % (42.2 - 75.2 %) 74.1 Lymphocytes % (20.5 - 51.1 %) 16.1 L Monocytes % (1.7 - 9.3 %) 9.2 Eosinophils % (0 - 5 %) 0.2 Basophils % (0.0 - 2.0 %) 0.4 Absolute Granulocytes (1.4 - 6.5 /CUMM) 10.4 H Absolute Lymphocytes (1.2 - 3.4 /CUMM) 2.3 Absolute Monocytes (0.10 - 0.60 /CUMM) 1.3 H Absolute Eosinophils (0.0 - 0.7 /CUMM) 0 Absolute Basophils (0.0 - 0.2 /CUMM) 0.1 PUBS MCHC (33.0 - 37.0 G/DL) 32.7 L 03/09 03/09 03/09 03/08 0600 0207 0137 1913 Chemistry Lactic Acid Cancelled Troponin I (< 0.11 ng/ml) 0.22 *H Coagulation PT (9.4 - 12.5 SEC) 16.5 H INR (0.90 - 1.19) 1.58 H APTT (25 - 37 SEC) Cancelled 40 H 03/08 03/08 1808 1640 Chemistry Sodium (137 - 145 mmol/L) 135 L Potassium (3.5 - 5.1 mmol/L) 4.2 Chloride (98 - 107 mmol/L) 92 L Carbon Dioxide (22 - 30 mmol/L) 30 Anion Gap (5 - 16) 13 BUN (7 - 17 mg/dL) 14 Creatinine (0.5 - 1.0 mg/dL) 0.5 Estimated GFR (>60 ml/min) > 60 BUN/Creatinine Ratio (7 - 25 %) 28.0 H Glucose (65 - 99 mg/dL) 141 H Lactic Acid (0.7 - 2.1 mmol/L) 1.6 Calcium (8.4 - 10.2 mg/dL) 9.2 Phosphorus (2.5 - 4.5 mg/dL) 2.1 L Magnesium (1.6 - 2.3 mg/dL) 1.8 Total Bilirubin (0.2 - 1.3 mg/dL) 1.5 H AST (14 - 36 U/L) 35 ALT (9 - 52 U/L) 43 Alkaline Phosphatase (<127 U/L) 122 Troponin I (< 0.11 ng/ml) 0.11 *H Total Protein (6.3 - 8.2 g/dL) 7.1 Albumin (3.5 - 5.0 g/dL) 3.8 Globulin (1.9 - 4.2 gm/dL) 3.3 Albumin/Globulin Ratio (1.1 - 2.2 %) 1.2 Hematology CBC w Diff MAN DIFF ORDERED WBC (4.8 - 10.8 /CUMM) 16.3 H RBC (4.20 - 5.40 /CUMM) 5.43 H Hgb (12.0 - 16.0 G/DL) 14.8 Hct (37 - 47 %) 45.7 MCV (81.0 - 99.0 FL) 84.1 MCH (27.0 - 31.0 PG) 27.2 RDW (11.5 - 14.5 %) 13.3 Plt Count (130 - 400 /CUMM) 276 MPV (7.4 - 10.4 FL) 8.8 Gran % (42.2 - 75.2 %) 84.4 H Lymphocytes % (20.5 - 51.1 %) 9.2 L Monocytes % (1.7 - 9.3 %) 6.2 Eosinophils % (0 - 5 %) 0 Basophils % (0.0 - 2.0 %) 0.2 Absolute Granulocytes (1.4 - 6.5 /CUMM) 13.8 H Segmented Neutrophils (42.2 - 75.2 %) 70 Band Neutrophils (0.0 - 5.0 %) 6 H Absolute Lymphocytes (1.2 - 3.4 /CUMM) 1.5 Lymphocytes (20.5 - 51.1 %) 8 L Monocytes (1.7 - 9.3 %) 16 H Absolute Monocytes (0.10 - 0.60 /CUMM) 1.0 H Absolute Eosinophils (0.0 - 0.7 /CUMM) 0 Absolute Basophils (0.0 - 0.2 /CUMM) 0 Platelet Estimate (ADEQUATE) ADEQUATE Normocytic RBCs VERIFIED Normochromic RBCs VERIFIED PUBS MCHC (33.0 - 37.0 G/DL) 32.4 L Toxicology Acetone Level (NEGATIVE) NEGATIVE Urines Urine Color (YEL,AMB,STR) YEL Urine Clarity (CLEAR) CLEAR Urine pH (5.0 - 8.0) 6.0 Ur Specific [place] (1.001 - 1.035) 1.015 Urine Protein (NEG,<30 MG/DL) 30 H Urine Ketones (NEG) NEG Urine Nitrite (NEG) NEG Urine Bilirubin (NEG) NEG Urine Urobilinogen (0.1 - 1.0 EU/dl) 0.2 Ur Leukocyte Esterase (NEG) NEG Ur Microscopic SEDIMENT EXAMINED Urine RBC (0 - 5 /HPF) RARE Urine Hemoglobin (NEG) TRACE-INTACT Urine Glucose (N MG/DL) >=1000 H Diagnostic Data EKG Results (03/08/2016 at 17:30) sinus rhythm at 96 bpm, and LBBB. New LBBB when compared to previous tracing (07/14/2015). EKG (03/09/2016 at 06:23) sinus rhythm at 83 bpm and within normal limits. CXR Results (03/08/2016) There is likely bacterial pneumonia of the right upper lobe without pleural effusion. Recommend chest radiographic follow-up in 4-6 weeks after medical therapy to ensure improvement/resolution of the disease. Other Results Head CT (03/08/2016) no acute intracranial process. Assessment/Plan Assessment/Plan Elderly female of [place] descent who presented with a several day history of productive cough followed by feverish feelings, shaking chills, altered mental status, etc., as well as, a "new" LBBB on her initial ECG and modest troponin I elevation on a background of known coronary artery disease and risk equivalent/risk factors for the same. Fortunately, her modest troponin I elevation could be explained on the basis of demand ischemia, as a result of her acute illness, rapid heart rate, and probable degree of left ventricular hypertrophy. The "new" LBBB could be secondary to the fact that her heart rate was on the rapid side and a transient phenomenon. Recommendations: * It would be reasonable scheduling her for an echocardiogram to assess her left ventricular systolic/diastolic function, degree of left ventricular hypertrophy, etc. * Once her pneumonia resolves, it would also be reasonable having her undergo a pharmacologic stress test to exclude any significant underlying ischemia, which could also be responsible for the LBBB and her modest troponin I elevation. * Would recommend maintaining her on her present cardiac regimen (statin, antiplatelets, PRITI inhibitor, beta jasen, etc.). * Would continue to hold diuretic therapy for the short-term. * Would contact her primary care physician's office (Yessenia Huntley M.D. @ [phone]) and her international trade manager's office in [place] (Slime Alaniz M.D. @ [phone]) for recent electrocardiograms and pertinent past cardiovascular history. * Continue DVT prophylaxis. Further recommendations will follow, Thank you. Consult Acknowledgment - Thank you for your consult request.
[2016-03-09 16:28] VITALS: BP 118/64
--- NOTE | 2016-03-09 18:24 | NUR ---
ARRYTHMIA: 09:05 AM NOTIFIED BY AIR/OCEAN EXPORT CLERK PT HAD 10 BEAT RUN OF V TACH. PT ASYMPTOMATIC UPON ASSESSMENT. IMMEDIATELY NOTIFIED DR DORSEY. LABS REVIEWED & MEDS PER EMAR. WILL CONTINUE TO MONITOR.
[2016-03-10 00:12] VITALS: BP 118/68
--- NOTE | 2016-03-10 07:38 | PN- Housestaff ---
MARLA DORSEY 03/10/16 0737: Subjective Follow-up For: Community acquired pneumonia Elevated troponins-NSTEMI versus demand ischemia NEW Left bundle branch block Complaints: pain scale (0-10) Tele-Events Since Last Visit: Sinus rhythm Rate 88-97 PVC Subjective: Patient was seen and examined this morning. she is alert, awake and oriented to time place and person. No acute events monitored overnight Patient reports some cough, sputum production-white color, shortness of breath. However denies any chest pain, racing of heart, headache, dizziness or lightheadedness. Feeling much better this morning. Denies any nausea, vomiting, abdominal pain, in bladder or bowel habits, fever or chills. Vitals were normal. Afebrile, heart rate 90, respiratory rate 20, blood pressure 124/72 saturating at 93% on 2 L. Review of Systems Constitutional: Denies: see HPI. Objective Last 24 Hrs of Vital Signs/I&O Vital Signs Date Time Temp Pulse Resp B/P Pulse O2 O2 Flow FiO2 Ox Delivery Rate 03/10 0901 91 124/70 03/10 0814 95 Nasal 2.0L Cannula 03/10 0805 98.8 90 20 124/72 93 Nasal 2.0L Cannula 03/10 0012 98.2 93 20 118/68 96 Nasal Cannula 03/10 0000 Nasal 2.0L Cannula 03/09 2156 95 Nasal 2.0L Cannula 03/09 2117 89 130/70 03/09 1628 98.7 97 20 118/64 96 Nasal 2.0L Cannula 03/09 1322 96 Nasal 2.0L Cannula 03/09 1253 Nasal 2.0L Cannula 03/09 1002 84 132/60 03/09 1001 84 132/60 Intake & Output 03/10 1600 03/10 0800 03/10 0000 Intake Total 200 110 Output Total 1100 Balance -900 110 Intake, IV 0 10 Intake, Oral 200 100 Number 0 Bowel Movements Output, Urine 1100 Physical Exam General Appearance: Alert, Oriented X3, Cooperative, No Acute Distress Skin: No Rashes, No Breakdown HEENT: Atraumatic, Mucous Membr. moist/pink Neck: Supple, No JVD Lymphatic: Cervical nl Cardiovascular: Normal S1, Normal S2 Lungs: Normal Air Movement, b/l wheezes Abdomen: Normal Bowel Sounds, Soft, No Tenderness Extremities: No Clubbing, No Cyanosis, No Edema Vascular: Normal Pulses Current Medications: Current Medications Sig/Dima Start time Last Medication Dose Route Stop Time Status Admin Acetaminophen 650 MG Q6P PRN 03/08 2100 AC PO Albuterol Sulfate 3 ML BID 03/09 1250 AC 03/10 INH 0800 Aspirin Buffered 325 MG DAILY 03/09 1000 AC 03/10 PO 0902 Atorvastatin Calcium 5 MG 1700 03/09 1700 AC 03/09 PO 1802 Atorvastatin Calcium 20 MG AT BEDTIME 03/08 2359 AC 03/09 PO 2117 Azithromycin 500 MG DAILY 03/09 1000 AC 03/10 Dextrose/Water 250 ML IV 0900 Benzonatate 100 MG TID PRN 03/10 0245 AC 03/10 PO 0249 Ceftriaxone Sodium 1,000 MG DAILY 03/09 1000 AC 03/10 IV 0859 Cinacalcet 30 MG DAILY 03/09 1000 AC 03/10 PO 0901 Clopidogrel Bisulfate 75 MG DAILY 03/09 1000 AC 03/10 PO 0901 Ergocalciferol 50,000 IU QFRI 03/10 0700 AC 03/10 PO 0610 Guaifenesin 600 MG Q12 03/09 1000 AC 03/09 PO 2117 Heparin Sodium 5,000 UNIT Q8 03/09 1455 AC 03/10 (Porcine) SC 0611 Heparin Sodium 25,000 UNIT Q24H 03/08 1945 DC 03/08 (Porcine) IV 2000 Sodium Chloride 500 ML Insulin Aspart 0 TIDAC 03/10 0800 AC 03/09 SC 1804 Insulin Aspart 0 TIDAC/HS 03/09 2100 CAN SC Insulin Human Regular 0 Q6 03/09 1200 DC SC Lisinopril 2.5 MG DAILY 03/09 1000 AC 03/10 PO 0901 Magnesium Oxide 400 MG ONE ONE 03/09 0930 DC 03/09 PO 03/09 0931 1003 Metoprolol Tartrate 25 MG BID 03/08 2314 AC 03/10 PO 0901 Paroxetine HCl 40 MG DAILY 03/09 1000 AC 03/10 PO 0901 Patient Medication 1 ED .STK-MED ONE 03/09 1349 DC Teaching ED 03/09 1350 Potassium Chloride 40 MEQ ONCE ONE 03/09 0930 DC 03/09 PO 03/09 0931 1003 Sodium Chloride 1,000 ML Q13H 03/08 2130 DC 03/08 IV 03/09 1029 2150 Last 24 Hrs of Lab/Pablito Results Last 24 Hrs of Labs/Mics: Laboratory Tests 03/10/16 0635: CBC w Diff NO MAN DIFF REQ, RBC 4.35, MCV 84.2, MCH 27.6, RDW 13.5, MPV 9.3, Gran % 69.3, Lymphocytes % 19.6 L, Monocytes % 9.5 H, Eosinophils % 1.2, Basophils % 0.4, Absolute Granulocytes 8.5 H, Absolute Lymphocytes 2.4, Absolute Monocytes 1.2 H, Absolute Eosinophils 0.2, Absolute Basophils 0, PUBS MCHC 32.8 L 03/09/16 1730: APTT Cancelled 03/09/16 1155: Troponin I 0.16 *H Assessment/Plan Assessment: This is a 76-year-old female with past medical history significant for coronary artery disease status post stent placed in 2009 and 2010, diabetes mellitus, hypertension, lower extremity edema, osteoporosis was brought to the emergency department with chief complaint of cough,yellow colour sputum production, chills , short of breath for 3 days. Also noted changes in mentation. VS on admission: BP 139/77, HR 98, RR 16, SPO2 90% on RA corrected to 94% on 2 LNC, T 99.7 Pertinent labs: WBC 16.3, 6% bandemia, bep- normal. troponins: 0.11 Lactic acid: 1.6 ekg on admisssion- sinus rhythm at 96 bpm, and LBBB. New LBBB when compared to previous tracing sinus rhythm at 83 bpm and within normal limits- 03/09/16. CXR Results (03/08/2016) There is likely bacterial pneumonia of the right upper lobe without pleural effusion. Recommend chest radiographic follow-up in 4-6 weeks after medical therapy to ensure improvement/resolution of the disease. Other Results Head CT (03/08/2016) no acute intracranial process. Problem list: 1. Community-acquired pneumonia 2. Leukocytosis with bandemia 3. Elevated troponins: NSTEMI vs demand ischemia of infection 4. new LBBB on EKG 5. History of CAD 6. Diabetes 7. Hypertension 8. Osteoporosis 9. Lower extremity edema Community-acquired pneumonia Patient presented with shaking chills, shortness of breath, cough associated with sputum production. However she is afebrile. Leukocyte count 16.3 with bandemia on admission. She is hypoxic requiring 2 L oxygen. Chest x-ray suggestive of bacterial pneumonia of right upper lobe. * Admitted to telemetry floor for further management. * Continuous telemetry monitoring * Monitor vitals every shift * Maintain oxygen saturation Above 90% * Provide supplemental oxygen if necessary * Monitor closely for fever, leukocyte common, worsening shortness of breath, cough, sputum production, hemoptysis * Continue IV antibiotics ceftriaxone and azithromycin day3. * Incentive spirometry * Total respiratory care * Follow blood culture and sputum cultures * Mucinex for cough * wbc came down to 12 from 16. Elevated troponins Patient was admitted for community-acquired pneumonia. Elevated troponins on admission. EKG showed sinus rhythm with a new left bundle branch block. ofNote patient has history of coronary artery disease with stents placement * Possibly from demand ischemia versus and nstemi. * Serial troponins 0.11, 0.22, 0.23, 0.16 * Serial EKGs-sinus rhythm at 83 bpm and within normal limits * Patient was initially started on IV heparin drip for possible nstemi * Will obtain an echo * IV heparin was stopped later * Continue aspirin 325 mg a day * Continue Plavix * Continue statins * Shake Out Worker Dr. Freedman davin on board Diabetes mellitus Accu-Cheks before each meal NovoLog sliding scale Hypertension Continue home dose of metoprolol and lisinopril Coronary artery disease Status post stent placement Continue aspirin Continue Plavix Continue statins Lower extremity edema Denies any edema Hold Lasix for now Osteoporosis Continue cincalnet Continued ergocalciferol Depression Continue paroxetine DVT prophylaxis subcutaneous heparin Heart healthy diet Passed swallow evaluation Full code Mild to moderate pain pathway Tylenol Problem List: 1. Pneumonia 2. Hypoxia 3. LBBB (left bundle branch block) 4. NSTEMI (non-ST elevated myocardial infarction) Pain Ratin Pain Location: none Pain Goal: Remain pain free Pain Plan: tylinol Tomorrow's Labs & Rationales: cbc in the setting of leucocytosis and pneumonia MARIANNA HUYNH MD 03/10/16 0952: Attending MD Review Statement Attending Statement Attending MD Statement: examined this patient, discuss w/resident/PA/NAVY SEAL, agreed w/resident/PA/NAVY SEAL, reviewed EMR data (avail), discussed with nursing, discussed with case mgmt Attending Assessment/Plan: Overall patient is feeling better. She still coughing and will try to taper off her oxygen. Noted that she had one run of 10 beats of nonsustained VT yesterday. She is here with a community-acquired pneumonia and a demand ischemia in that setting. She was transiently put on IV heparin she's now on aspirin and Plavix statin and beta jasen. We will take out her Alvarez, ambulate her, taper off her oxygen and follow-up on her echocardiogram.
[2016-03-10 08:05] VITALS: BP 124/72
[2016-03-10 08:31] LABS: ABSOLUTE BASOPHIL COUNT 0 /CUMM (0.0-0.2); ABSOLUTE EOSINOPHIL COUNT 0.2 /CUMM (0.0-0.7); ABSOLUTE GRANULOCYTE CT 8.5 /CUMM (1.4-6.5); ABSOLUTE LYMPH COUNT 2.4 /CUMM (1.2-3.4); ABSOLUTE MONOCYTE COUNT 1.2 /CUMM (0.10-0.60); BASOPHIL % 0.4 % (0.0-2.0); EOSINOPHIL % 1.2 % (0-5); GRANULOCYTE % 69.3 % (42.2-75.2); HEMATOCRIT 36.6 % (37-47); MEAN CORPUSCULAR HGB 27.6 PG (27.0-31.0); MEAN CORPUSCULAR HGB CONC 32.8 G/DL (33.0-37.0); MEAN CORPUSCULAR VOLUME 84.2 FL (81.0-99.0); MEAN PLATELET VOLUME 9.3 FL (7.4-10.4); PLATELET COUNT 268 /CUMM (130-400); RBC DISTRIBUTION WIDTH 13.5 % (11.5-14.5); RED BLOOD CELL CT 4.35 /CUMM (4.20-5.40); WHITE BLOOD CELL COUNT 12.3 /CUMM (4.8-10.8)
--- NOTE | 2016-03-10 12:43 | ECHOCARDIOGRAM REPORT ---
CHRISTOPHER GONZALEZ Age: 76 : 1940 Gender: F Exam Date: 03/10/2016 09:28 Exam Location: [facility] Ht (in): 66 Wt (lb): 180 BSA: 1.97 BP: 124 / 70 Ordering Physician: ROSANGELA DORSEY M Referring Physician: ROSANGELA DORSEY MD Technologist: Matthew Rocha [facility] Room Number: 176-01 Indications: Rhythm: Sinus Technical Quality: Fair FINDINGS Left Ventricle Normal size left ventricle. Mild concentric left ventricular hypertrophy. No obvious regional wall motion abnormalities. Normal left ventricular ejection fraction visually estimated at 65%. Normal left ventricular diastolic filling pattern for age. Right Ventricle Normal right ventricular size and function. Right Atrium Normal right atrial size. Left Atrium Normal left atrial size. Mitral Valve Mitral valve mildly thickened. Trace mitral regurgitation. Aortic Valve Trileaflet aortic valve. Minimal aortic sclerosis. No aortic valve stenosis or regurgitation. Tricuspid Valve Structurally normal tricuspid valve. Trace tricuspid regurgitation. Right ventricular systolic pressure estimated at 31 mmHg. Pulmonic Valve Pulmonic valve not well visualized. Trace pulmonic regurgitation. Pericardium No pericardial effusion. Great Vessels Normal size aortic root. Dilated inferior vena cava. CONCLUSIONS Normal size left ventricle. Mild concentric left ventricular hypertrophy. Normal left ventricular ejection fraction visually estimated at 65%. Normal left ventricular diastolic filling pattern for age. Normal right ventricular size and function. Normal atrial size. Trace mitral regurgitation. Trace tricuspid regurgitation. Right ventricular systolic pressure estimated at 31 mmHg. Trace pulmonic regurgitation. Dilated inferior vena cava. Bryce Freedman M.D. (Electronically Signed) Final Date: 10 March 2016 12:42 MEASUREMENTS (Male / Female) Normal Values 2D ECHO LV Diastolic Diameter PLAX 4.0 cm 4.2 - 5.9 / 3.9 - 5.3 cm LV Systolic Diameter PLAX 3.1 cm 2.1 - 4.0 cm LV Fractional Shortening PLAX 22.5 % 25 - 46 % LV Ejection Fraction 2D Teich 45.8 % IVS Diastolic Thickness 1.1 cm LVPW Diastolic Thickness 1.1 cm LV Relative Wall Thickness 0.6 LVOT Diameter 1.9 cm Aortic Root Diameter 3.2 cm LA Systolic Diameter LX 3.8 cm 3.0 - 4.0 / 2.7 - 3.8 cm LV Ejection Fraction MOD BP 59.0 % >= 55 % LV Diastolic Length 4C 7.6 cm 6.9 - 10.3 cm LV Diastolic Area 4C 24.3 cm LV Diastolic Volume MOD 4C 64.0 cm LV Ejection Fraction MOD 4C 60.9 % LV Stroke Volume MOD 4C 39.0 cm LV Systolic Length 4C 6.0 cm LV Systolic Area 4C 13.2 cm LV Systolic Volume MOD 4C 25.0 cm LV Ejection Fraction MOD 2C 60.3 % LV Diastolic Volume 4C AL 66.4 cm 85 - 139 / 69 - 109 cm LV Systolic Volume 4C AL 24.6 cm LV Ejection Fraction 4C AL 62.9 % LV Stroke Volume 4C AL 41.7 cm LV Ejection Fraction 2C AL 61.9 % LA Volume 46.0 cm 18 - 58 / 22 - 52 cm Ascending Aorta Diameter 3.0 cm DOPPLER AV Peak Velocity 144.0 cm/s AV Peak Gradient 8.3 mmHg AV Mean Velocity 97.4 cm/s AV Mean Gradient 4.0 mmHg AV Velocity Time Integral 27.7 cm LVOT Peak Velocity 105.0 cm/s LVOT Peak Gradient 4.4 mmHg LVOT Mean Velocity 65.1 cm/s LVOT Mean Gradient 2.0 mmHg LVOT Velocity Time Integral 23.3 cm LVOT Stroke Volume 66.1 cm AV Area Cont Eq vti 2.4 cm AV Area Cont Eq pk 2.1 cm MV Peak Velocity 125.0 cm/s MV Peak Gradient 6.3 mmHg MV Mean Velocity 78.1 cm/s MV Mean Gradient 3.0 mmHg Mitral E Point Velocity 101.0 cm/s Mitral A Point Velocity 79.0 cm/s Mitral E to A Ratio 1.3 MV PHT Velocity 131.0 cm/s MV Deceleration [place] 624.0 cm/s MV Pressure Half Time 63.0 ms MV Area PHT 3.5 cm MV Deceleration Time 208.0 ms TR Peak Velocity 254.0 cm/s TR Peak Gradient 25.8 mmHg PV Peak Velocity 106.0 cm/s PV Peak Gradient 4.5 mmHg PV Mean Velocity 84.4 cm/s PV Mean Gradient 3.0 mmHg PV Velocity Time Integral 22.7 cm LV E' Lateral Velocity 9.2 cm/s Mitral E to LV E' Lateral Ratio 11.0 LV E' Septal Velocity 8.2 cm/s Mitral E to LV E' Septal Ratio 12.3
--- NOTE | 2016-03-10 13:46 | Discharge Summary ---
Visit Information Visit Dates Admission Date: 03/08/16 Discharge Date: 03/13/16 Hospital Course Course Attending Physician: LINO ARELLANO,AMRIANNA Plata Primary Care Physician: GINGER WOO MD Consulting Request: Consulting Specialty: Cardiology Hospital Course: This is a a 76-year-old lady with past medical history significant for of CAD status post stent placement (), diabetes, hypertension, lower extremity edema who presented to the hospital with complaints of three-day duration productive cough and new onset change in mentation. Vital signs on admission: Date Time Temp Pulse Resp B/P Pulse O2 O2 Flow FiO2 Ox Delivery Rate 03/08 2106 98.3 74 74 108/59 95 Nasal 2.0L Cannula 03/08 1846 97.8 86 18 122/61 95 03/08 1759 99.5 96 20 135/70 94 Nasal 2.0L Cannula 03/08 1547 99.7 98 16 139/77 90 Nasal Cannula Pertinent physical exam at the time of admission:General Appearance Alert, Cooperative, No Acute Distress Skin No Rashes, No Breakdown HEENT PERRLA, EOMI, Mucous Membr. moist/pink Neck Supple Cardiovascular Regular Rate, Normal S1, Normal S2 Lungs Normal Air Movement, Inspiratory crackles in the basilar regions BL. Rhonchi present in the R lung shah Abdomen Normal Bowel Sounds, Soft, No Tenderness Neurological Normal Speech Extremities No Cyanosis, No Edema Vascular Pulses Symmetrical Pertinent laboratory on admission: 03/08/16 1808: Urine Color YEL, Urine Clarity CLEAR, Urine pH 6.0, Ur Specific [place] 1.015, Urine Protein 30 H, Urine Ketones NEG, Urine Nitrite NEG, Urine Bilirubin NEG, Urine Urobilinogen 0.2, Ur Leukocyte Esterase NEG, Ur Microscopic SEDIMENT EXAMINED, Urine RBC RARE, Urine Hemoglobin TRACE-INTACT, Urine Glucose >=1000 H 03/08/16 1640: Anion Gap 13, Estimated GFR > 60, BUN/Creatinine Ratio 28.0 H, Glucose 141 H, Lactic Acid 1.6, Calcium 9.2, Total Bilirubin 1.5 H, AST 35, ALT 43, Alkaline Phosphatase 122, Troponin I 0.11 *H, Total Protein 7.1, Albumin 3.8, Globulin 3.3, Albumin/Globulin Ratio 1.2, CBC w Diff MAN DIFF ORDERED, RBC 5.43 H, MCV 84.1, MCH 27.2, RDW 13.3, MPV 8.8, Gran % 84.4 H, Lymphocytes % 9.2 L, Monocytes % 6.2, Eosinophils % 0, Basophils % 0.2, Absolute Granulocytes 13.8 H , Segmented Neutrophils 70, Band Neutrophils 6 H, Absolute Lymphocytes 1.5, Lymphocytes 8 L, Monocytes 16 H, Absolute Monocytes 1.0 H, Absolute Eosinophils 0, Absolute Basophils 0, Platelet Estimate ADEQUATE, Normocytic RBCs VERIFIED, Normochromic RBCs VERIFIED, PUBS MCHC 32.4 L, Acetone Level NEGATIVE Diagnostic Data: EKG Results Sinus rhythm, left bundle branch block. HR 96. QTC 470 CXR Results There is likely bacterial pneumonia of the right upper lobe without pleural effusion. Recommend chest radiographic follow-up in 4-6 weeks after medical therapy to ensure improvement/resolution of the disease. Other Results Head CT:No acute intracranial pathology. No intracranial hemorrhage. Sphenoid sinusitis. Passed swallow evaluation. The patient was admitted to telemetry monitored service. The following problems were addressed during the course of her hospital stay: #Community-acquired pneumonia: The patient presented with shaking chills, shortness of breath, cough associated with sputum production. Afebrile with leukocytosis count elevated to 16.3 with bandemia on admission. Chest x-ray was suggestive of bacterial pneumonia. The patient received oxygen supplementation, oxygen saturation was maintained above 90% at all times. She was monitored closely. Initially started on IV ceftriaxone and azithromycin which eventually was changed to by mouth. She received incentive spirometry. Leukocytosis improved during the course of her hospital stay. 12.3 on 03/10/2016. The patient should complete a total 7 day course of antibiotic therapy 4. #Elevated troponins: The patient had elevated troponins on admission, EKG showed new left bundle branch block(most likely rate related bundle branch block) repeat EKG is sinus rhythm, cardiology was consulted. Her modest troponin I elevation could be explained on the basis of demand ischemia, as a result of her acute illness, rapid heart rate, and probable degree of left ventricular hypertrophy. She was initially started on IV heparin which was discontinued per cardiology. She was maintained on dual antiplatelet therapy with aspirin and Plavix. She was maintained on statin. Troponins: 0.11, 0.22, 0.23, 0.16 Records from previous talent management specialist, Dr. Slime Alaniz MD in [place] including recent electrocardiogram was reviewed. Echocardiogram was obtained which revealed:Normal size left ventricle. Mild concentric left ventricular hypertrophy. Normal left ventricular ejection fraction visually estimated at 65%. Normal left ventricular diastolic filling pattern for age. Normal right ventricular size and function. Normal atrial size.Trace mitral regurgitation. Trace tricuspid regurgitation. Right ventricular systolic pressure estimated at 31 mmHg. Trace pulmonic regurgitation. Dilated inferior vena cava. The patient should follow up with cardiology, Dr. Freedman as outpatient. #History of diabetes: Home medications of Farxiga and Janumet were held on admission. The patient was placed on diabetes diet, blood glucose levels were monitored closely. Was maintained on insulin sliding scale. Blood glucose levels remained relatively well-controlled during the course of her hospital stay. Ranging between 98-236. #Coronary artery disease: Status post stent placement. She was maintained on aspirin, Plavix, statins #History of Lower extremity edema: On furosemide as outpatient, no lower extremity edema during hospital stay. Furosemide was held per cardiology given acute infection and borderline blood pressure. To be resumed as outpatient. #Osteoporosis: She was maintained on cincalnet and ergocalciferol #Depression: She was maintained on home medication of paroxetine #DVT prophylaxis subcutaneous heparin #Cardiac/diabetic diet #CODE STATUS Full code Allergies: Coded Allergies: No Known Allergies (07/14/15) Significant Procedures: Echocardiogram 03/10/2016: CONCLUSIONS Normal size left ventricle. Mild concentric left ventricular hypertrophy. Normal left ventricular ejection fraction visually estimated at 65%. Normal left ventricular diastolic filling pattern for age. Normal right ventricular size and function. Normal atrial size. Trace mitral regurgitation. Trace tricuspid regurgitation. Right ventricular systolic pressure estimated at 31 mmHg. Trace pulmonic regurgitation. Dilated inferior vena cava. Lisa Freedman M.D. (Electronically Signed) Final Date: 10 March 2016 Disposition Summary Disposition Principal Diagnosis: Community-acquired pneumonia Additional Diagnosis: Demand ischemia Discharge Disposition: SNF Discharge Instructions General Discharge Information Code Status: Full Code Patient's Diet: Cardiac/diabetic Patient's Activity: As tolerated Follow-Up Instructions/Appts: -To follow-up with primary care doctor within a week of discharge. -Make an appointment to see talent management specialist, Dr. Freedman within a week of discharge (referral provided). -Take the medications as instructed. -Return to the hospital if symptoms not improved/worsen. Medications at Discharge Discharge Medications: Continue taking these medications: Aspirin (Ecotrin*) 325 MG TABLET.DR 1 Tablet ORAL DAILY Comments: PER PT SON Dapagliflozin Propanediol (Farxiga) 5 MG TABLET 1 Tablet ORAL DAILY Qty = 90 Sitagliptin Phos/Metformin HCl (Janumet 50-500 MG Tablet) 50 MG-500 MG TABLET 1 Tablet ORAL TWICE DAILY Qty = 180 Atorvastatin Calcium (Atorvastatin Calcium) 20 MG TABLET 1 Tablet ORAL TAKE AT BEDTIME Qty = 90 Metoprolol Tartrate (Metoprolol Tartrate) 25 MG TABLET 1 Tablet ORAL TWICE DAILY Qty = 180 Ramipril (Ramipril) 2.5 MG CAPSULE 1 Capsule ORAL DAILY Qty = 90 Cinacalcet HCl (Sensipar) 30 MG TABLET 1 Tablet ORAL DAILY Qty = 90 Clopidogrel Bisulfate (Clopidogrel) 75 MG TABLET 1 Tablet ORAL DAILY Qty = 90 Paroxetine HCl (Paroxetine HCl) 40 MG TABLET 1 Tablet ORAL DAILY Qty = 90 Alendronate Sodium (Alendronate Sodium) 70 MG TABLET 1 Tablet ORAL Once a Week Qty = 4 Instructions: in the morning, at least 30 minutes before the first food, beverage, or medication of the day Furosemide (Furosemide) 20 MG TABLET 1 Tablet ORAL DAILY Qty = 90 Potassium Chloride (Potassium Chloride) 20 MEQ TAB.ER.PRT 1 Tablet ORAL DAILY Qty = 30 Ergocalciferol (Vitamin D2) (Vitamin D2) 50,000 UNIT CAPSULE 1 Capsule ORAL Once a Week Qty = 4 Glimepiride (Glimepiride) 4 MG TABLET 1 Tablet ORAL DAILY Qty = 90 Start taking the following new medications: Amoxicillin/Clavulanate Potass (Amox-Clav 875-125 MG Tablet) 875 MG-125 MG TABLET 1 Tablet ORAL TWICE DAILY Qty = 2 No Refills Albuterol Sulfate (Albuterol Sulfate) 2.5 MG/3 ML (0.083 %) VIAL.NEB 3 Milliliters Inhale through mouth TWICE DAILY Qty = 1 No Refills Benzonatate (Benzonatate) 100 MG CAPSULE 1 Tablet ORAL THREE TIMES DAILY as needed for COUGH Qty = 30 No Refills Copies To: CHILO ARELLANO,GINGER; INDIRA ARELLANO,LISA Velázquez
[2016-03-10] MEDS ORDERED: AMOX-CLAV 875-1 EACH PO (13:51)
[2016-03-10] MEDS ORDERED: ALBUTEROL2.5 MG/3 M INH (13:51)
[2016-03-10] MEDS ORDERED: BENZONATATE100 M1 PO (13:51)
--- NOTE | 2016-03-10 13:57 | Patient Discharge Instructions ---
Discharge Instructions General Discharge Information You were seen/treated for: Community acquired pneumonia Elevated troponins-NSTEMI versus demand ischemia. NEW Left bundle branch block You had these procedures: NONE Watch for these problems: CHEST PAIN SHORT OF BREATH FEVER, CHILLS COUGH PHLEGM PRODUCTION Special Instructions: FOLLOW UP YOUR PRIMARY CARE DOCTOR IN ONE WEEK FOLLOW UP [facility] NURSE, IN ONE WEEK. NEW REFERRAL WAS PROVIDED. Diet Recommended Diet: Heart Healthy Activity Full Activity/No Limits: Yes Acute Coronary Syndrome Inclusion Criteria At DC or during hospital stay patient has or had the following: ACS DIAGNOSIS Yes Discharge Core Measures Meds if any: Prescribed or Continued at Discharge PRITI/ARB if EF <40% Yes Aspirin Yes Statin Yes Meds if any: NOT Prescribed or Continued at Discharge Congestive Heart Failure Inclusion Criteria At DC or during hospital stay patient has or had the following: CHF DIAGNOSIS No Discharge Core Measures Meds if any: Prescribed or Continued at Discharge Meds if any: NOT Prescribed or Continued at Discharge Cerebrovascular accident Inclusion Criteria At DC or during hospital stay patient has or had the following: CVA/TIA Diagnosis No Discharge Core Measures Meds if any: Prescribed or Continued at Discharge Meds if any: NOT Prescribed or Continued at Discharge Venous thromboembolism Inclusion Criteria VTE Diagnosis No VTE Type NONE VTE Confirmed by (Test) NONE Discharge Core Measures - Per Current guidelines, there needs to be overlap - treatment for the first 5 days of Warfarin therapy. - If discharged on Warfarin prior to 5 days of - overlap therapy, the patient will need to be - assessed for post discharge needs including - *Post discharge parental anticoagulation - *Warfarin and/or parental anticoagulation education - *Follow up date to check INR post discharge At least 5 days overlap therapy as Inpatient No Meds if any: Prescribed or Continued at Discharge Note: Overlap Therapy is Warfarin and Anticoagulant Meds if any: NOT Prescribed or Continued at Discharge
[2016-03-10 15:31] VITALS: BP 130/60
[2016-03-11 00:11] VITALS: BP 160/80
[2016-03-11 07:49] LABS: ABSOLUTE BASOPHIL COUNT 0 /CUMM (0.0-0.2); ABSOLUTE EOSINOPHIL COUNT 0.2 /CUMM (0.0-0.7); ABSOLUTE GRANULOCYTE CT 9.2 /CUMM (1.4-6.5); ABSOLUTE LYMPH COUNT 2.7 /CUMM (1.2-3.4); ABSOLUTE MONOCYTE COUNT 0.9 /CUMM (0.10-0.60); BASOPHIL % 0.3 % (0.0-2.0); EOSINOPHIL % 1.2 % (0-5); GRANULOCYTE % 70.6 % (42.2-75.2); MEAN CORPUSCULAR HGB 27.5 PG (27.0-31.0); MEAN CORPUSCULAR HGB CONC 32.7 G/DL (33.0-37.0); MEAN CORPUSCULAR VOLUME 84.2 FL (81.0-99.0); MEAN PLATELET VOLUME 9.6 FL (7.4-10.4); PLATELET COUNT 313 /CUMM (130-400); RBC DISTRIBUTION WIDTH 13.1 % (11.5-14.5); RED BLOOD CELL CT 4.88 /CUMM (4.20-5.40)
[2016-03-11 08:18] VITALS: BP 138/80
--- NOTE | 2016-03-11 08:40 | PN- Housestaff ---
Subjective Follow-up For: Community acquired pneumonia Elevated troponins-NSTEMI versus demand ischemia NEW Left bundle branch block Complaints: pain scale (0-10) Tele-Events Since Last Visit: Sinus rhythm Rate 60-88 Subjective: Patient was seen and examined this morning. she is alert, awake and oriented to time place and person. No acute events monitored overnight Patient reports some cough, sputum production-white color, shortness of breath ON EXERTION However denies any chest pain, racing of heart, headache, dizziness or lightheadedness. Feeling much better this morning. Denies any nausea, vomiting, abdominal pain, in bladder or bowel habits, fever or chills. Vitals were normal. Afebrile, heart rate 80, respiratory rate 20, blood pressure 134/72 saturating at 92 ON ROOM AIR Review of Systems Constitutional: Denies: see HPI. Objective Last 24 Hrs of Vital Signs/I&O Vital Signs Date Time Temp Pulse Resp B/P Pulse O2 O2 Flow FiO2 Ox Delivery Rate 03/11 1600 98.6 84 20 130/76 92 Room Air 03/11 1012 98.4 80 20 138/80 03/11 1011 98.4 80 20 138/80 03/11 0829 93 Nasal 2.0L Cannula 03/11 0818 98.4 80 20 138/80 97 Nasal 2.0L Cannula 03/11 0800 98 Nasal 2.0L Cannula 03/11 0011 101.3 86 20 160/80 90 Room Air 03/11 0006 101.2 03/104 108 138/70 03/10 2114 93 Room Air Intake & Output 03/11 1600 03/11 0800 03/11 0000 Intake Total 650 100 720 Output Total 500 700 Balance 650 -400 20 Intake, Oral 650 100 720 Number 1 Bowel Movements Output, Urine 500 700 Physical Exam General Appearance: Alert, Oriented X3, Cooperative, No Acute Distress Skin: No Rashes, No Breakdown HEENT: Atraumatic, Mucous Membr. moist/pink Neck: Supple, No JVD Lymphatic: Cervical nl Cardiovascular: Normal S1, Normal S2 Lungs: Normal Air Movement Abdomen: Normal Bowel Sounds, Soft, No Tenderness Extremities: No Clubbing, No Cyanosis, No Edema Vascular: Normal Pulses Current Medications: Current Medications Sig/Dima Start time Last Medication Dose Route Stop Time Status Admin Acetaminophen 650 MG .STK-MED ONE 03/10 2355 DC PO 01/13 2357 Acetaminophen 650 MG Q6P PRN 03/08 2100 AC 03/11 PO 0006 Albuterol Sulfate 3 ML BID 03/09 1250 AC 03/11 INH 0826 Aspirin Buffered 325 MG DAILY 03/09 1000 AC 03/11 PO 1011 Atorvastatin Calcium 20 MG 1700 03/10 1715 AC 03/11 PO 1649 Azithromycin 500 MG DAILY 03/09 1000 AC 03/11 Dextrose/Water 250 ML IV 1030 Benzonatate 100 MG TID PRN 03/10 0245 AC 03/10 PO 0249 Ceftriaxone Sodium 1,000 MG DAILY 03/09 1000 AC 03/11 IV 1025 Cinacalcet 30 MG DAILY 03/09 1000 AC 03/11 PO 1012 Clopidogrel Bisulfate 75 MG DAILY 03/09 1000 AC 03/11 PO 1012 Ergocalciferol 50,000 IU QFRI 03/10 0700 AC 03/10 PO 0610 Guaifenesin 600 MG Q12 03/09 1000 AC 03/11 PO 1212 Heparin Sodium 5,000 UNIT Q8 03/09 1455 AC 03/11 (Porcine) SC 1432 Insulin Aspart 0 TIDAC 03/10 0800 AC 03/11 SC 1650 Lisinopril 2.5 MG DAILY 03/09 1000 AC 03/11 PO 1012 Metoprolol Tartrate 25 MG BID 03/08 2314 AC 03/11 PO 1011 Paroxetine HCl 40 MG DAILY 03/09 1000 AC 03/11 PO 1011 Last 24 Hrs of Lab/[place] Results Last 24 Hrs of Labs/Mics: Laboratory Tests 03/11/16 0625: CBC w Diff NO MAN DIFF REQ, RBC 4.88, MCV 84.2, MCH 27.5, RDW 13.1, MPV 9.6, Gran % 70.6, Lymphocytes % 20.9, Monocytes % 7.0, Eosinophils % 1.2, Basophils % 0.3, Absolute Granulocytes 9.2 H, Absolute Lymphocytes 2.7, Absolute Monocytes 0.9 H, Absolute Eosinophils 0.2, Absolute Basophils 0, PUBS MCHC 32.7 L Assessment/Plan Assessment: This is a 76-year-old female with past medical history significant for coronary artery disease status post stent placed in 2009 and 2010, diabetes mellitus, hypertension, lower extremity edema, osteoporosis was brought to the emergency department with chief complaint of cough, yellow colour sputum production, chills, short of breath for 3 days. Also noted changes in mentation. VS on admission: BP 139/77, HR 98, RR 16, SPO2 90% on RA corrected to 94% on 2 LNC, T 99.7 Pertinent labs: WBC 16.3, 6% bandemia, bep- normal. troponins: 0.11 Lactic acid: 1.6 ekg on admisssion- sinus rhythm at 96 bpm, and LBBB. New LBBB when compared to previous tracing sinus rhythm at 83 bpm and within normal limits- 03/09/16. CXR Results (03/08/2016) There is likely bacterial pneumonia of the right upper lobe without pleural effusion. Recommend chest radiographic follow-up in 4-6 weeks after medical therapy to ensure improvement/resolution of the disease. Other Results Head CT (03/08/2016) no acute intracranial process. Problem list: 1. Community-acquired pneumonia 2. Leukocytosis with bandemia 3. Elevated troponins: NSTEMI vs demand ischemia of infection 4. new LBBB on EKG 5. History of CAD 6. Diabetes 7. Hypertension 8. Osteoporosis 9. Lower extremity edema Community-acquired pneumonia Patient presented with shaking chills, shortness of breath, cough associated with sputum production. However she is afebrile. Leukocyte count 16.3 with bandemia on admission. She is hypoxic requiring 2 L oxygen. Chest x-ray suggestive of bacterial pneumonia of right upper lobe. * Admitted to telemetry floor for further management. * Continuous telemetry monitoring * Monitor vitals every shift * Maintain oxygen saturation Above 90% * Provide supplemental oxygen if necessary * Monitor closely for fever, leukocyte common, worsening shortness of breath, cough, sputum production, hemoptysis * Continue IV antibiotics ceftriaxone and azithromycin day4. Oral Augmentin for 2 more days at the time of discharge. * Incentive spirometry * Total respiratory care * Follow blood culture and sputum cultures * Mucinex for cough * wbc came down to 12 from 16. Elevated troponins Patient was admitted for community-acquired pneumonia. Elevated troponins on admission. EKG showed sinus rhythm with a new left bundle branch block. ofNote patient has history of coronary artery disease with stents placement * Possibly from demand ischemia versus and nstemi. * Serial troponins 0.11, 0.22, 0.23, 0.16 * Serial EKGs-sinus rhythm at 83 bpm and within normal limits * Patient was initially started on IV heparin drip for possible nstemi * IV heparin was stopped later * Continue aspirin 325 mg a day * Continue Plavix * Continue statins * Field Counsel Dr. Jasmina jin on board echo Normal size left ventricle. Mild concentric left ventricular hypertrophy. No obvious regional wall motion abnormalities. Normal left ventricular ejection fraction visually estimated at 65%. Normal left ventricular diastolic filling pattern for age. Diabetes mellitus Accu-Cheks before each meal NovoLog sliding scale Hypertension Continue home dose of metoprolol and lisinopril Coronary artery disease Status post stent placement Continue aspirin Continue Plavix Continue statins Lower extremity edema Denies any edema Hold Lasix for now Osteoporosis Continue cincalnet Continued ergocalciferol Depression Continue paroxetine DVT prophylaxis subcutaneous heparin Heart healthy diet Passed swallow evaluation Full code Mild to moderate pain pathway Tylenol discharge her to short-term rehabilitation once bed is available Problem List: 1. LBBB (left bundle branch block) 2. NSTEMI (non-ST elevated myocardial infarction) 3. Hypoxia 4. Pneumonia Pain Ratin Pain Location: none Pain Goal: Remain pain free Pain Plan: tylinol Tomorrow's Labs & Rationales: none Consulting Request: Consulting Specialty: Cardiology
--- NOTE | 2016-03-11 15:14 | PN- Att Addend ---
Attending MD Review Statement Attending Statement Attending MD Statement: examined this patient, discuss w/resident/PA/[employer], agreed w/resident/PA/[employer], discussed with family, reviewed EMR data (avail) Attending Assessment/Plan: Patient seen and examined at bedside. Discussed with the resident and media relations intern the care plan and agree with their note. Community-acquired pneumonia we will continue the antibiotics for now. Type II myocardial infarction secondary to demand ischemia will continue on antiplatelet therapy. Deconditioning-plan is to place the patient into subacute rehabilitation. Awaiting placement. Discussed with patient and his family at bedside the care plan.
[2016-03-11 16:00] VITALS: BP 130/76
[2016-03-11] MEDS ORDERED: AMOX-CLAV 875-1 EACH PO (18:12)
[2016-03-12] VITALS: BP 132/70
--- NOTE | 2016-03-12 08:14 | PN- Housestaff ---
See Addendum Subjective Follow-up For: Community acquired pneumonia Elevated troponins-NSTEMI versus demand ischemia NEW Left bundle branch block Tele-Events Since Last Visit: Sinus rhythm, rate 7291, no events. Subjective: Patient seen and examined. Feels better compared to yesterday. Still reports shortness of breath especially on exertion. Reports productive cough (white sputum), denies dizziness, lightheadedness, chest pain, palpitation, abdominal pain, urinary symptoms. Afebrile, adequate oxygen saturation on 2L nasal cannula oxygen Review of Systems Constitutional: Denies: see HPI. Objective Last 24 Hrs of Vital Signs/I&O Vital Signs Date Time Temp Pulse Resp B/P Pulse O2 O2 Flow FiO2 Ox Delivery Rate 03/12 0901 95 Nasal 2.0L Cannula 03/12 0849 98.5 92 20 130/70 03/12 0848 98.5 92 20 130/70 03/12 0817 98.5 92 20 130/70 94 Nasal 2.0L Cannula 03/12 0800 96 Nasal 2.0L Cannula 03/12 0000 97.4 100 22 132/70 92 Room Air 03/12 0000 92 Room Air 03/11 2146 100 132/70 03/11 2017 97 Nasal 2.0L Cannula 03/11 1600 96 03/11 1600 98.6 84 20 130/76 92 Room Air 03/11 1012 98.4 80 20 138/80 03/11 1011 98.4 80 20 138/80 Intake & Output 03/12 1600 03/12 0800 03/12 0000 Intake Total 850 550 Output Total 650 Balance 850 -100 Intake, IV 600 0 Intake, Oral 250 550 Number 0 Bowel Movements Output, Urine 650 Physical Exam General Appearance: Alert, Cooperative, No Acute Distress Skin: No Rashes, No Breakdown, No Significant Lesion HEENT: Atraumatic, PERRLA, EOMI, Mucous Membr. moist/pink Neck: Supple, No JVD, No thryomegaly, +2 Carotid Pulse wo Bruit, No LAD Lymphatic: Axillary nl, Cervical nl Cardiovascular: Regular Rate, No Murmurs Lungs: Clear to Auscultation, Normal Air Movement Abdomen: Normal Bowel Sounds, Soft, No Tenderness, No Hepatospenomegaly, No Masses Neurological: Normal Speech, Strength at 5/5 X4 Ext, Normal Tone, Sensation Intact, Cranial Nerves 3-12 NL, Reflexes 2+ Extremities: No Clubbing, No Cyanosis, No Edema, Normal Pulses, No Tenderness/ Swelling Vascular: Pulses Symmetrical Current Medications: Current Medications Sig/Dima Start time Last Medication Dose Route Stop Time Status Admin Acetaminophen 650 MG Q6P PRN 03/08 2100 AC 03/11 PO 0006 Albuterol Sulfate 3 ML BID 03/09 1250 AC 03/12 INH 0858 Aspirin Buffered 325 MG DAILY 03/09 1000 AC 03/12 PO 0848 Atorvastatin Calcium 20 MG 1700 03/10 1715 AC 03/11 PO 1649 Azithromycin 500 MG DAILY 03/09 1000 AC 03/11 Dextrose/Water 250 ML IV 1030 Benzonatate 100 MG TID PRN 03/10 0245 AC 03/10 PO 0249 Ceftriaxone Sodium 1,000 MG DAILY 03/09 1000 AC 03/12 IV 0850 Cinacalcet 30 MG DAILY 03/09 1000 AC 03/12 PO 0849 Clopidogrel Bisulfate 75 MG DAILY 03/09 1000 AC 03/12 PO 0849 Ergocalciferol 50,000 IU QFRI 03/10 0700 AC 03/10 PO 0610 Guaifenesin 600 MG Q12 03/09 1000 AC 03/12 PO 0848 Heparin Sodium 5,000 UNIT Q8 03/09 1455 AC 03/12 (Porcine) SC 0644 Insulin Aspart 0 TIDAC 03/10 0800 AC 03/12 SC 0846 Lisinopril 2.5 MG DAILY 03/09 1000 AC 03/12 PO 0849 Metoprolol Tartrate 25 MG BID 03/08 2314 AC 03/12 PO 0848 Paroxetine HCl 40 MG DAILY 03/09 1000 AC 03/12 PO 0848 Last 24 Hrs of Lab/[place] Results Last 24 Hrs of Labs/Mics: Laboratory Tests 03/12/16 0635: CBC w Diff NO MAN DIFF REQ, RBC 4.51, MCV 83.6, MCH 27.5, RDW 13.3, MPV 9.0, Gran % 66.2, Lymphocytes % 21.1, Monocytes % 10.3 H, Eosinophils % 1.9, Basophils % 0.5, Absolute Granulocytes 6.9 H, Absolute Lymphocytes 2.2, Absolute Monocytes 1.1 H, Absolute Eosinophils 0.2, Absolute Basophils 0.1, PUBS MCHC 32.9 L Assessment/Plan Assessment: This is a 76-year-old female with past medical history significant for coronary artery disease status post stent placed in 2009 and 2010, diabetes mellitus, hypertension, lower extremity edema, osteoporosis and was admitted with community-acquired pneumonia and NSTEMI type II secondary to demand ischemia. Problem list: 1. Community-acquired pneumonia 2. Leukocytosis with bandemia 3. Elevated troponins: NSTEMI vs demand ischemia of infection 4. new LBBB on EKG 5. History of CAD 6. Diabetes 7. Hypertension 8. Osteoporosis 9. Lower extremity edema Community-acquired pneumonia Patient presented with shaking chills, shortness of breath, cough associated with sputum production. However she is afebrile. Leukocyte count 16.3 with bandemia on admission. She is hypoxic requiring 2 L oxygen. Chest x-ray suggestive of bacterial pneumonia of right upper lobe. * Admitted to telemetry floor for further management. * Continuous telemetry monitoring * Monitor vitals every shift * Maintain oxygen saturation Above 90% * Provide supplemental oxygen if necessary * Monitor closely for fever, leukocyte common, worsening shortness of breath, cough, sputum production, hemoptysis * Continue with IV ceftriaxone and azithromycin, day #4, to be changed to by mouth upon discharge. * Incentive spirometry * Total respiratory care * Follow blood culture and sputum cultures * Mucinex for cough Elevated troponins * Possibly from demand ischemia versus and nstemi. * Serial troponins 0.11, 0.22, 0.23, 0.16 * Serial EKGs-sinus rhythm at 83 bpm and within normal limits * Patient was initially started on IV heparin drip for possible nstemi, IV heparin was stopped later * Continue aspirin 325 mg a day * Continue Plavix, statins * Roll Handler Dr. Freedman following. Echocardiogram Normal size left ventricle. Mild concentric left ventricular hypertrophy. No obvious regional wall motion abnormalities. Normal left ventricular ejection fraction visually estimated at 65%. Normal left ventricular diastolic filling pattern for age. Diabetes mellitus Accu-Cheks before each meal NovoLog sliding scale Glucose levels ranging in 200s. Hypertension Continue home dose of metoprolol and lisinopril Coronary artery disease Status post stent placement Continue aspirin, Plavix, statins History of Lower extremity edema No lower extremity edema at this point. Home medication of furosemide on hold. Osteoporosis Continue cincalnet, ergocalciferol Depression Continue paroxetine DVT prophylaxis subcutaneous heparin Heart healthy diet Passed swallow evaluation Full code Mild to moderate pain pathway Tylenol discharge her to short-term rehabilitation once bed is available Problem List: 1. Pneumonia 2. NSTEMI (non-ST elevated myocardial infarction) Pain Ratin Pain Location: NA Pain Goal: Remain pain free Pain Plan: PRN TYlenol Tomorrow's Labs & Rationales: BEP: Monitor electrolytes. Consulting Request: Consulting Specialty: Cardiology
[2016-03-12 08:17] VITALS: BP 130/70
[2016-03-12 08:58] LABS: ABSOLUTE BASOPHIL COUNT 0.1 /CUMM (0.0-0.2); ABSOLUTE EOSINOPHIL COUNT 0.2 /CUMM (0.0-0.7); ABSOLUTE GRANULOCYTE CT 6.9 /CUMM (1.4-6.5); ABSOLUTE LYMPH COUNT 2.2 /CUMM (1.2-3.4); ABSOLUTE MONOCYTE COUNT 1.1 /CUMM (0.10-0.60); BASOPHIL % 0.5 % (0.0-2.0); EOSINOPHIL % 1.9 % (0-5); GRANULOCYTE % 66.2 % (42.2-75.2); HEMATOCRIT 37.7 % (37-47); MEAN CORPUSCULAR HGB 27.5 PG (27.0-31.0); MEAN CORPUSCULAR HGB CONC 32.9 G/DL (33.0-37.0); MEAN CORPUSCULAR VOLUME 83.6 FL (81.0-99.0); PLATELET COUNT 320 /CUMM (130-400); RBC DISTRIBUTION WIDTH 13.3 % (11.5-14.5); RED BLOOD CELL CT 4.51 /CUMM (4.20-5.40); WHITE BLOOD CELL COUNT 10.4 /CUMM (4.8-10.8)
[2016-03-12 16:00] VITALS: BP 116/70
[2016-03-12 23:00] VITALS: BP 120/60
--- NOTE | 2016-03-13 07:29 | PN- Housestaff ---
MARLA DORSEY 03/13/16 0729: Subjective Follow-up For: Community acquired pneumonia Elevated troponins-NSTEMI versus demand ischemia NEW Left bundle branch block Complaints: pain scale (0-10) Tele-Events Since Last Visit: Sinus rhythm Rate 89-95 Sinus tachycardia 80-110 Subjective: Patient was seen and examined this morning. she is alert, awake and oriented to time place and person. No acute events monitored overnight Patient reports some cough,sputum production-white color, shortness of breath ON EXERTION only. However denies any chest pain, racing of heart, headache, dizziness or lightheadedness. Feeling much better this morning. Denies any nausea, vomiting, abdominal pain, in bladder or bowel habits, fever or chills. Vitals were normal. Afebrile, heart rate 96, respiratory rate 20, blood pressure 120/60 saturating at 90 ON ROOM AIR. Review of Systems Constitutional: Denies: see HPI. Objective Last 24 Hrs of Vital Signs/I&O Vital Signs Date Time Temp Pulse Resp B/P Pulse O2 O2 Flow FiO2 Ox Delivery Rate 03/13 0906 98 130/70 03/13 0903 98 130/70 03/13 0800 97.8 98 20 130/70 92 Nasal 1.0L Cannula 03/13 0000 93 Nasal 1.0L Cannula 03/12 2300 98.0 96 20 120/60 92 Nasal 1.0L Cannula 03/12 2131 96 120/60 03/12 1831 89 Room Air 03/12 1600 99.0 91 20 116/70 91 Room Air Intake & Output 03/13 1600 03/13 0800 03/13 0000 Intake Total 120 450 Output Total 200 Balance -80 450 Intake, Oral 120 450 Output, Urine 200 Physical Exam General Appearance: Alert, Oriented X3, Cooperative, No Acute Distress Skin: No Rashes, No Breakdown HEENT: Atraumatic, Mucous Membr. moist/pink Neck: Supple, No JVD Lymphatic: Cervical nl Cardiovascular: Normal S1, Normal S2 Lungs: Normal Air Movement Abdomen: Normal Bowel Sounds, Soft, No Tenderness Extremities: No Clubbing, No Cyanosis, No Edema Vascular: Normal Pulses Current Medications: Current Medications Sig/Dima Start time Last Medication Dose Route Stop Time Status Admin Acetaminophen 650 MG Q6P PRN 03/08 2100 AC 03/11 PO 0006 Albuterol Sulfate 3 ML BID 03/09 1250 AC 03/12 INH 1830 Aspirin Buffered 325 MG DAILY 03/09 1000 AC 03/13 PO 0903 Atorvastatin Calcium 20 MG 1700 03/10 1715 AC 03/12 PO 1757 Azithromycin 500 MG DAILY 03/09 1000 AC 03/13 Dextrose/Water 250 ML IV 0907 Benzonatate 100 MG TID PRN 03/10 0245 AC 03/10 PO 0249 Ceftriaxone Sodium 1,000 MG DAILY 03/09 1000 AC 03/13 IV 0907 Cinacalcet 30 MG DAILY 03/09 1000 AC 03/13 PO 0906 Clopidogrel Bisulfate 75 MG DAILY 03/09 1000 AC 03/13 PO 0906 Ergocalciferol 50,000 IU QFRI 03/10 0700 AC 03/10 PO 0610 Guaifenesin 600 MG Q12 03/09 1000 AC 03/13 PO 0903 Heparin Sodium 5,000 UNIT Q8 03/09 1455 AC 03/13 (Porcine) SC 0549 Insulin Aspart 0 TIDAC 03/10 0800 AC 03/13 SC 0903 Lisinopril 2.5 MG DAILY 03/09 1000 AC 03/13 PO 0906 Metoprolol Tartrate 25 MG BID 03/08 2314 AC 03/13 PO 0903 Ondansetron HCl 4 MG ONCE ONE 03/12 1900 CAN PO 03/12 190 Ondansetron HCl 4 MG ONCE ONE 03/12 1900 DC 03/12 IV 03/12 190 1953 Paroxetine HCl 40 MG DAILY 03/09 1000 AC 03/13 PO 0904 Last 24 Hrs of Lab/[place] Results Last 24 Hrs of Labs/Mics: Laboratory Tests 03/13/16 0650: Anion Gap 5, Estimated GFR > 60, BUN/Creatinine Ratio 30.0 H Assessment/Plan Assessment: This is a 76-year-old female with past medical history significant for coronary artery disease status post stent placed in 2009 and 2010, diabetes mellitus, hypertension, lower extremity edema, osteoporosis was brought to the emergency department with chief complaint of cough, yellow colour sputum production, chills, short of breath for 3 days. Also noted changes in mentation. VS on admission: BP 139/77, HR 98, RR 16, SPO2 90% on RA corrected to 94% on 2 LNC, T 99.7 Pertinent labs: WBC 16.3, 6% bandemia, bep- normal. troponins: 0.11 Lactic acid: 1.6 ekg on admisssion- sinus rhythm at 96 bpm, and LBBB. New LBBB when compared to previous tracing sinus rhythm at 83 bpm and within normal limits- 03/09/16. CXR Results (03/08/2016) There is likely bacterial pneumonia of the right upper lobe without pleural effusion. Recommend chest radiographic follow-up in 4-6 weeks after medical therapy to ensure improvement/resolution of the disease. Other Results Head CT (03/08/2016) no acute intracranial process. Problem list: 1. Community-acquired pneumonia 2. Leukocytosis with bandemia 3. Elevated troponins: NSTEMI vs demand ischemia of infection 4. new LBBB on EKG 5. History of CAD 6. Diabetes 7. Hypertension 8. Osteoporosis 9. Lower extremity edema Community-acquired pneumonia Patient presented with shaking chills, shortness of breath, cough associated with sputum production. However she is afebrile. Leukocyte count 16.3 with bandemia on admission. She is hypoxic requiring 2 L oxygen. Chest x-ray suggestive of bacterial pneumonia of right upper lobe. * Admitted to telemetry floor for further management. * discontinued telemetry monitoring * Monitor vitals every shift * Maintain oxygen saturation Above 90% * Provide supplemental oxygen if necessary * Monitor closely for fever, leukocyte common, worsening shortness of breath, cough, sputum production, hemoptysis * Continue IV antibiotics ceftriaxone and azithromycin day6. Oral Augmentin for 1 more day at the time of discharge. * Incentive spirometry * Total respiratory care * Follow blood culture and sputum cultures- neg so far * Mucinex for cough * wbc came down to 10 from 16. Elevated troponins Patient was admitted for community-acquired pneumonia. Elevated troponins on admission. EKG showed sinus rhythm with a new left bundle branch block. ofNote patient has history of coronary artery disease with stents placement * Possibly from demand ischemia versus and nstemi. * Serial troponins 0.11, 0.22, 0.23, 0.16 * Serial EKGs-sinus rhythm at 83 bpm and within normal limits * Patient was initially started on IV heparin drip for possible nstemi * IV heparin was stopped later * Continue aspirin 325 mg a day * Continue Plavix * Continue statins * Other Sports Coach Or Instructor Dr. Freedman davin on board echo Normal size left ventricle. Mild concentric left ventricular hypertrophy. No obvious regional wall motion abnormalities. Normal left ventricular ejection fraction visually estimated at 65%. Normal left ventricular diastolic filling pattern for age. Diabetes mellitus Accu-Cheks before each meal NovoLog sliding scale Hypertension Continue home dose of metoprolol and lisinopril Coronary artery disease Status post stent placement Continue aspirin Continue Plavix Continue statins Lower extremity edema Denies any edema Hold Lasix for now Osteoporosis Continue cincalnet Continued ergocalciferol Depression Continue paroxetine DVT prophylaxis subcutaneous heparin Heart healthy diet Passed swallow evaluation Full code Mild to moderate pain pathway Tylenol discharge her to short-term rehabilitation once bed is available Problem List: 1. Pneumonia 2. Hypoxia 3. LBBB (left bundle branch block) 4. NSTEMI (non-ST elevated myocardial infarction) Pain Ratin Pain Location: none Pain Goal: Remain pain free Pain Plan: tylinol Tomorrow's Labs & Rationales: none Consulting Request: Consulting Specialty: Cardiology MARIANNA HUYNH MD 03/13/16 1102: Attending MD Review Statement Attending Statement Attending MD Statement: examined this patient, discuss w/resident/PA/BUILDING TRADES INSTRUCTOR, agreed w/resident/PA/BUILDING TRADES INSTRUCTOR, reviewed EMR data (avail), discussed with nursing, discussed with case mgmt Attending Assessment/Plan: Patient is doing well. We are slowly tapering her off her oxygen down to 1 L. She is a 76-year-old female who had demand ischemia in the setting of a community-acquired pneumonia. She'll complete a total of 7 days of antibiotics and have outpatient cardiology follow-up. We are pending an STR bed.
[2016-03-13] MEDS ORDERED: AMOX-CLAV 875-1 EACH PO (07:51)
[2016-03-13 08:00] VITALS: BP 130/70
[2016-03-13 15:17] VITALS: BP 130/70
== END 2016-03-13 15:53 | DRG 193 ==
LOC: ENRESERVTM → ENRESERVDT → ERH 15:39 → ENPENDDIS 18:15 → ERHI 18:15 → 1NO 18:15
PROVIDERS: Emergency Medicine; Internal Medicine; ADMIT Internal Medicine
DX: J18.9 Pneumonia, unspecified organism (principal); G93.41 Metabolic encephalopathy; I11.9 Hypertensive heart disease without heart failure; I24.8 Other forms of acute ischemic heart disease; R41.82 Altered mental status, unspecified; I44.7 Left bundle-branch block, unspecified; I25.10 Atherosclerotic heart disease of native coronary artery without angina pectoris; E11.9 Type 2 diabetes mellitus without complications; M81.0 Age-related osteoporosis without current pathological fracture; Z95.5 Presence of coronary angioplasty implant and graft
CPT/HCPCS: 1NP; 36415; 81001; 82436; 87040; 87070; 87086; 87449; 87450; 87804; 87804-59; 93005; 93010; 93306; 96365; 96375; 97110-GO; 97116-GO; 97162-GP; 97530-GO; 99291; J0131; J0456; J0696; J1644; J1650; J2405; J3101; J7040; J7060